=== PATIENT | female | born 1940 | race Caucasian/White ===

== ENCOUNTER → 2020-03-12 14:31 | Outpatient (BNVA) | payer MEDICARE, SELFPAY | PROVIDERS: PCP Internal Medicine; Visit Provider Family Medicine Adult Medicine | DX: R20.2 Paresthesia of skin (principal) | CPT/HCPCS: 99204 ==

== ENCOUNTER → 2020-03-19 09:34 | Outpatient (BNVA) | payer MEDICARE, SELFPAY | PROVIDERS: PCP Internal Medicine; Referring Provider Internal Medicine; Visit Provider Family Medicine Adult Medicine | DX: R20.2 Paresthesia of skin (principal) | CPT/HCPCS: 99212 ==

== ENCOUNTER → 2020-10-15 09:54 | Outpatient (BNVA) | payer MEDICARE, SELFPAY | PROVIDERS: PCP Internal Medicine; Visit Provider Family Medicine Adult Medicine | DX: R20.2 Paresthesia of skin (principal) | CPT/HCPCS: 99212 ==

== ENCOUNTER → 2020-10-29 13:26 | Outpatient (BNVA) | payer MEDICARE, SELFPAY | PROVIDERS: PCP Internal Medicine | DX: F11.20 Opioid dependence, uncomplicated (principal) | CPT/HCPCS: 80305; Q3014 ==

== ENCOUNTER → 2020-11-05 10:37 | Outpatient (BNVA) | payer MEDICARE, SELFPAY | PROVIDERS: Visit Provider Internal Medicine | DX: F11.20 Opioid dependence, uncomplicated (principal) | CPT/HCPCS: 80305; 99212 ==

== ENCOUNTER → 2020-11-12 11:06 | Outpatient (BNVA) | payer MEDICARE, SELFPAY | PROVIDERS: Visit Provider Internal Medicine | DX: F11.20 Opioid dependence, uncomplicated (principal) | CPT/HCPCS: 80305; 99212 ==

== ENCOUNTER → 2020-11-19 11:34 | Outpatient (BNVA) | payer MEDICARE, SELFPAY | PROVIDERS: Visit Provider Internal Medicine | DX: F11.20 Opioid dependence, uncomplicated (principal) | CPT/HCPCS: 99202 ==

== ENCOUNTER → 2020-11-20 09:25 | Outpatient (BNVA) | payer MEDICARE, SELFPAY | PROVIDERS: Visit Provider Internal Medicine | DX: Z51.81 Encounter for therapeutic drug level monitoring (principal) | CPT/HCPCS: 80305; 99211 ==

== ENCOUNTER → 2020-11-27 11:45 | Outpatient (BNVA) | payer MEDICARE, SELFPAY | PROVIDERS: Visit Provider Internal Medicine | DX: F11.20 Opioid dependence, uncomplicated (principal) | CPT/HCPCS: 80305; 99212 ==

== ENCOUNTER → 2020-12-04 14:12 | Outpatient (BNVA) | payer MEDICARE, SELFPAY | PROVIDERS: Visit Provider Internal Medicine | DX: F11.20 Opioid dependence, uncomplicated (principal) | CPT/HCPCS: 80305; 99212 ==

== ENCOUNTER → 2020-12-13 13:56 | Outpatient (BNVA) | payer MEDICARE, SELFPAY | PROVIDERS: Visit Provider Internal Medicine | DX: Z51.81 Encounter for therapeutic drug level monitoring (principal) | CPT/HCPCS: 80305; 99211 ==

== ENCOUNTER → 2021-01-01 13:09 | Outpatient (BNVA) | payer MEDICARE, SELFPAY | PROVIDERS: Visit Provider Internal Medicine | DX: F11.20 Opioid dependence, uncomplicated (principal) | CPT/HCPCS: 80305; 99212 ==

== ENCOUNTER → 2021-03-17 13:17 | Outpatient (BNVA) | payer MEDICARE, SELFPAY | PROVIDERS: Visit Provider Internal Medicine | DX: F11.20 Opioid dependence, uncomplicated (principal); F17.210 Nicotine dependence, cigarettes, uncomplicated; Z88.0 Allergy status to penicillin; Z51.81 Encounter for therapeutic drug level monitoring | CPT/HCPCS: 99212 ==

== ENCOUNTER 2021-03-29 16:41 | Emergency (ER) | payer MEDICARE, SELFPAY ==
[2021-03-29 16:54] VITALS: BP 168/90; PULSE 90; O2SAT 100
[2021-03-29 16:57] VITALS: BP 164/75; PULSE 86; RESP 18; TEMP 37.3; O2SAT 98; BMI 21.3
--- NOTE | 2021-03-29 17:05 | ED_ITS ---
HPI - General Adult General Chief complaint: General Medical Stated complaint: R ARM /LEG NERVE PAIN X'S 3 DAYS Time Seen by Provider: 03/29/21 16:55 Source: patient Mode of arrival: EMS Limitations: no limitations History of Present Illness HPI narrative: Patient with right-sided chronic pain used to follow with Pain Clinic was on Suboxone was at [facility] earlier today comes here for pain getting worse especially for last 3 days. Per patient she has not taken Suboxone for last 3 weeks as she does not have it anymore and the reason she is giving these because his primary care doctor does not want to give. Per records patient keeps changing her primary care doctor's last time patient was found taking oxycodone of her 's prescription. No recent trauma no headache no fever or chills Related Data Home Medications Medication Instructions Recorded Confirmed amitriptyline 50 mg tablet 50 mg PO BEDTIME 03/12/20 12/08/20 celecoxib 200 mg capsule mg PO 03/12/20 12/08/20 donepezil 10 mg tablet 10 mg PO DAILY 03/12/20 12/08/20 flu vac qv 2019(18yr up)rc(PF) IM 03/12/20 12/08/20 gabapentin 600 mg tablet mg PO Q12H tab 03/12/20 12/08/20 meloxicam 15 mg tablet 15 mg PO DAILY 03/12/20 12/08/20 ropinirole 0.25 mg tablet mg PO 03/12/20 12/08/20 Previous Rx's Medication Instructions Recorded buprenorphine 8 mg-naloxone 2 mg 3 film SUBLINGUAL DAILY 30 Days 01/01/21 sublingual film (Suboxone) #90 ea Allergies Allergy/AdvReac Type Severity Reaction Status Date / Time penicillin Allergy Unknown Unknown Uncoded 10/15/20 10:53 Review of Systems Review of Systems: Yes all other systems are reviewed and are negative FOR[facility]LY [facility] Past Medical History Medical History Family history of brain aneurysm Opioid dependence Pain management Right leg paresthesias Right leg paresthesias Social History Social History Household Members: Spouse Household Members Other:: lives only with Patient Tobacco Use Status: Current everyday Tobacco user Tobacco use type: Cigarette Cigarettes Per Day: 10 Years Smoked: 40 Advance Directives: No Advance Directives Information Provided: No Current occupation: retired nurse Physical Exam Vital Signs: Vital Signs: Last Vital Signs Temp 99.2 F 03/29/21 16:57 Pulse 86 03/29/21 16:57 Resp 18 03/29/21 16:57 BP 164/75 H 03/29/21 16:57 Pulse Ox 98 03/29/21 16:57 Body Mass Index 21.3 Appearance: Alert. Oriented X3. No acute distress. Eyes: PERRLA, No Nystagmus ENT: Pharynx normal. Oral Mucosa moist Neck: Normal inspection. Neck supple. CVS: Normal heart rate and rhythm. Pulses normal. Respiratory: No respiratory distress. Equal air entry bilateral, no wheezing/rales/rhonchi Abdomen: Soft and nontender. Bowel sounds are present, no mass palpable, no CVA tenderness Skin: Skin warm and dry. Normal skin color. Normal skin turgor. Extremities: No lower extremity edema. No calf tenderness Neuro: Oriented X 3. No motor deficit. No sensory deficit.No cerebellar signs , cranial nerves II-XII intact Medical Decision Making Lab Data Lab results reviewed: Yes I reviewed the patient's lab results. Labs: Lab Results 03/29/21 Range/Units 18:18 Urine Opiates Screen Not Detected (Not Detect) Urine Fentanyl Screen POSITIVE H (Not Detect) Ur Barbiturates Screen Not Detected (Not Detect) Ur Phencyclidine Scrn Not Detected (Not Detect) Ur Amphetamines Screen Not Detected (Not Detect) U Benzodiazepines Scrn Not Detected (Not Detect) Urine Cocaine Screen Not Detected (Not Detect) U Marijuana (THC) Screen Not Detected (Not Detect) Discharge Plan Discharge Clinical Impression: Chronic pain Qualifiers: Chronic pain type: chronic pain syndrome Qualified Code(s): G89.4 - Chronic pain syndrome Patient Disposition: Home, Self-Care Instructions: Chronic Pain (ED) Additional Instructions: Follow-up with your PCP/ pain clinicfor further management Prescriptions: No Action Flublok Quad [id number] (PF) 180 mcg (45 mcg x 4)/0.5 mL syringe IM RF: 0 amitriptyline 50 mg tablet 50 mg PO BEDTIME RF: 0 donepezil 10 mg tablet 10 mg PO DAILY RF: 0 celecoxib 200 mg capsule PO RF: 0 meloxicam 15 mg tablet 15 mg PO DAILY RF: 0 ropinirole 0.25 mg tablet PO RF: 0 gabapentin 600 mg tablet PO Q12H RF: 0 buprenorphine-naloxone [Suboxone] 8-2 mg film 3 film sublingual DAILY 30 Days Qty: 90 RF: 0
[2021-03-29 18:47] LABS: Amphetamine Screen Urine Not Detected (Not Detect); Barbiturates, Urine Not Detected (Not Detect); Benzodiazepines Screen Urine Not Detected (Not Detect); Cannabinoid Screen Urine Not Detected (Not Detect); Cocaine Screen Urine Not Detected (Not Detect); Fentanyl, urine POSITIVE (Not Detect); Opiate Screen Urine Not Detected (Not Detect); Phencyclidine Screen Urine Not Detected (Not Detect)
[2021-03-29] MEDS: oxyCODONE HCl Immed Release 5 MG TABLET 10 MG PO (19:02)
== END 2021-03-29 19:04 | disposition home or self-care (01) ==
PROVIDERS: Emergency Provider Internal Medicine; PCP Internal Medicine
DX: G89.4 Chronic pain syndrome (principal); M79.2 Neuralgia and neuritis, unspecified; F17.210 Nicotine dependence, cigarettes, uncomplicated; Z71.6 Tobacco abuse counseling; Z79.899 Other long term (current) drug therapy
CPT/HCPCS: 80307; 99283

== ENCOUNTER 2021-04-28 16:22 | Outpatient (REF) | payer MEDICARE, SELFPAY ==
--- NOTE | ~2021-04-28 | MR_ITS ---
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 COMPARISON: MR angiogram of the head 01/19/2017. TECHNIQUE: Multiplanar MR imaging of the brain was performed without contrast. A three-dimensional [id number] acquisition of the intracranial vessels was also performed without contrast. MIP reconstructions were generated in multiple orientations at the acquisition workstation. Multiple three-dimensional surface rendered images and maximum intensity projection images were generated on a dedicated 3-D lab workstation. Arterial stenoses are measured in accordance with NASCET criteria or similar method if applicable. FINDINGS: Brain: There is a small focus of gliosis and encephalomalacia involving the right anterior temporal lobe. There is also an old shunt tract traversing the right frontal lobe. Scattered nonspecific foci of T2 FLAIR signal hyperintense are visualized within the periventricular white matter. No acute territorial infarct. Intracranial vascular flow voids are grossly maintained. There is within the right sylvian fissure and suprasellar cistern consistent with aneurysm clips and/or endovascular coils. There is no intracranial mass effect or midline shift. No abnormal extra-axial collection. Lateral and third ventricles are proportionate to the subarachnoid spaces. No hydrocephalus. Midline structures including the cervicomedullary junction are normal. No acute bone marrow signal changes. There is no mastoid middle ear effusion. [id number]-[id number] paranasal sinus disease primarily affecting the ethmoid air cells. Globes and orbits are symmetric. 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 Intracranial internal carotid are otherwise patent. There are also small contour abnormality along the undersurfaces of both supraclinoid internal carotid artery that may represent small aneurysms or infundibula at the origins of both posterior communicating arteries. Due to the extent of coil mass artifact it is difficult to definitively exclude the presence of a recurrence at the aneurysm neck. Otherwise no evidence of aneurysm or high flow vascular malformation is visualized elsewhere within the intracranial compartment. 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 No evidence of acute territorial infarct. There are chronic changes related to the endovascular repair of intracranial aneurysms within the suprasellar cistern and right sylvian fissure. Due to the extent of susceptibility artifact related to the embolic hardware it is difficult to definitively exclude the presence of a recurrence at the aneurysm neck.
--- NOTE | ~2021-04-28 | MR_ITS ---
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 COMPARISON: MR angiogram of the head 01/19/2017. TECHNIQUE: Multiplanar MR imaging of the brain was performed without contrast. A three-dimensional plau-xl-zrtols acquisition of the intracranial vessels was also performed without contrast. MIP reconstructions were generated in multiple orientations at the acquisition workstation. Multiple three-dimensional surface rendered images and maximum intensity projection images were generated on a dedicated 3-D lab workstation. Arterial stenoses are measured in accordance with NASCET criteria or similar method if applicable. FINDINGS: Brain: There is a small focus of gliosis and encephalomalacia involving the right anterior temporal lobe. There is also an old shunt tract traversing the right frontal lobe. Scattered nonspecific foci of T2 FLAIR signal hyperintense are visualized within the periventricular white matter. No acute territorial infarct. Intracranial vascular flow voids are grossly maintained. There is within the right sylvian fissure and suprasellar cistern consistent with aneurysm clips and/or endovascular coils. There is no intracranial mass effect or midline shift. No abnormal extra-axial collection. Lateral and third ventricles are proportionate to the subarachnoid spaces. No hydrocephalus. Midline structures including the cervicomedullary junction are normal. No acute bone marrow signal changes. There is no mastoid middle ear effusion. Yzmo-cf-kaulztjd paranasal sinus disease primarily affecting the ethmoid air cells. Globes and orbits are symmetric. 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 Intracranial internal carotid are otherwise patent. There are also small contour abnormality along the undersurfaces of both supraclinoid internal carotid artery that may represent small aneurysms or infundibula at the origins of both posterior communicating arteries. Due to the extent of coil mass artifact it is difficult to definitively exclude the presence of a recurrence at the aneurysm neck. Otherwise no evidence of aneurysm or high flow vascular malformation is visualized elsewhere within the intracranial compartment. 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 No evidence of acute territorial infarct. There are chronic changes related to the endovascular repair of intracranial aneurysms within the suprasellar cistern and right sylvian fissure. Due to the extent of susceptibility artifact related to the embolic hardware it is difficult to definitively exclude the presence of a recurrence at the aneurysm neck.
== END 2021-04-28 16:23 | disposition home or self-care (01) ==
LOC: HO.MRI 16:22
PROVIDERS: Visit Provider Psychiatry & Neurology Neurology
DX: G89.0 Central pain syndrome (principal); I60.9 Nontraumatic subarachnoid hemorrhage, unspecified
CPT/HCPCS: 70544; 70551

== ENCOUNTER 2022-12-16 17:10 | Emergency (ER) | payer MEDICARE, SELFPAY ==
--- NOTE | 2022-12-16 17:11 | ED.EPISTAXIS ---
History of Present Illness General Chief Complaint: General Medical Stated Complaint: nose bleed, -blood thinners. Time Seen by Provider: 12/16/22 17:11 Source: patient, family, EMS, RN notes reviewed and old records reviewed Mode of arrival: EMS History of Present Illness HPI Narrative: 82-year-old female with a past medical history of opiate dependence, presenting to the ED via EMS complaining of epistaxis from right nare which occurred last night lasting about 1 hour and recurred today around 1630 spontaneously. Denies taking anticoagulation, nasal picking, head trauma, LOC, lightheadedness/dizziness, headache. tried direct pressure at home and packing with cotton without relief Location: Yes right nares Onset/current episode: Yes day(s) Related Data Home Medications Medication Instructions Recorded Confirmed amitriptyline 50 mg tablet 50 mg PO BEDTIME 03/12/20 12/08/20 celecoxib 200 mg capsule mg PO 03/12/20 12/08/20 donepezil 10 mg tablet 10 mg PO DAILY 03/12/20 12/08/20 flu vac qv 2019(18yr up)rc(PF) 180 IM 03/12/20 12/08/20 mcg(45 mcgx4)/0.5 mL IM syringe gabapentin 600 mg tablet mg PO Q12H 03/12/20 12/08/20 meloxicam 15 mg tablet 15 mg PO DAILY 03/12/20 12/08/20 ropinirole 0.25 mg tablet mg PO 03/12/20 12/08/20 Previous Rx's Medication Instructions Recorded buprenorphine 8 mg-naloxone 2 mg 3 film sublingual DAILY 30 days 01/01/21 sublingual film (Suboxone) #90 ea Allergies Allergy/AdvReac Type Severity Reaction Status Date / Time penicillin Allergy Unknown Unknown Uncoded 10/15/20 10:53 Review of Systems Review of Systems: Constitutional: No Fever, No Chills ENT/Mouth: +epistaxis, No Ear Pain, No Nasal Congestion, No Sinus Pain, No Hoarseness, No sore throat, No Rhinorrhea, No Swallowing Difficulty Cardiovascular: No Chest Pain, No SOB Respiratory: No Cough, No Sputum, No Wheezing Gastrointestinal: No Nausea, No Vomiting, No Abdominal pain Musculoskeletal: No joint pain, No Myalgias, No Joint Swelling Skin: No Skin Lesions, No rash Neuro: No Weakness, no lightheadedness/dizziness, no headache Yes all other systems are reviewed and are negative Constitutional: Constitutional: Reports as per [facility] Past Medical History Attestation statement: The following information was validated with the patient. Source: old records reviewed Medical History Family history of brain aneurysm Opioid dependence Pain management Right leg paresthesias Right leg paresthesias Social History Social History Household Members: Spouse Household Members Other:: lives only with Patient Tobacco Use Status: Current everyday Tobacco user Tobacco use type: Cigarette Cigarettes Per Day: 10 Years Smoked: 40 Advance Directives: No Advance Directives Information Provided: No Current occupation: retired nurse Physical Exam Vital Signs: Vital Signs: Last Vital Signs Temp 99.1 F 12/16/22 18:17 Pulse 93 12/16/22 18:17 Resp 18 12/16/22 18:17 BP 157/86 H 12/16/22 18:17 Pulse Ox 96 12/16/22 18:17 O2 Del Method Room Air 12/16/22 18:17 BMI result Body Mass Index 22.7 Const: General: cooperative, healthy appearing and no acute distress Orientation/consciousness: patient oriented x3 Limitations: no limitations HEENT: Head: Yes normal to inspection and Yes atraumatic Ears: hearing grossly normal bilaterally and external ears normal General nose exam: Normal external nose present and Epistaxis present on the left dried blood present; no active bleeding and clots present Face and sinus: Yes normal facial exam Throat: Yes posterior oropharynx normal (No appreciable active bleeding or dry blood), Yes uvula midline, No uvula laterally displaced and No uvular edema Eyes: General: appearance normal, both eyes and all related structures EOM: EOMs intact bilaterally Neck: Neck: Yes normal visual inspection and Yes no meningeal signs Resp: Effort & Inspection: normal respiratory effort and no respiratory distress Auscultation: clear to auscultation bilaterally Cardio: Rate: regular rate Heart sounds: S1 normal heart sound present and S2 normal heart sound present Skin: Rashes: no rashes Wounds: no wounds Neuro: General: patient oriented x3, tone normal and no meningeal signs Gait exam (Neuro): Normal gait present Extrem: General: Yes normal to inspection Course Course Course Narrative: -[id number]--H&H stable. Coags WNL. When to re-evaluate patient however eloped the ED Medical Decision Making Medical Decision Making [facility] Narrative: 82-year-old female with a past medical history of opiate dependence, presenting to the ED via EMS complaining of epistaxis from right nare which occurred last night lasting about 1 hour and recurred today around 1630 spontaneously. On exam vital signs stable, NAD, nontoxic appearing, dry blood noted to left knee are without evidence of active bleeding, no septal hematoma, no posterior oropharyngeal bleeding or dry blood. Talking in complete sentences. Concern for epistaxis which is currently resolved. Rule out anemia/coagulopathy Plan: CBC, INR, observe and re-evaluate Please refer to course for remaining clinical decision making, interpretation of labs/imaging results, and discussions with consultants and/or family members. Differential Diagnosis Differential Diagnoses: The differential diagnosis associated with the presentation includes As above Lab Data [facility] Lab Attestation statement: I reviewed the patient's lab results. 12/16/22 18:24 Labs: Lab Results 12/16/22 12/16/22 Range/Units 18:24 18:24 WBC 8.5 (4.8-10.8) X10*3/uL RBC 3.63 L (4.20-5.50) X10*6/uL Hgb 11.2 L (12.0-16.0) g/dl Hct 32.8 L (37.0-47.0) % MCV 90.4 (80.0-98.0) fL MCH 30.9 (27.0-33.0) pg MCHC 34.1 (31.0-35.0) g/dl RDW 13.0 (11.0-16.0) % Plt Count 238 (160-400) X10*3/uL MPV 10.6 (9.4-12.3) fL Immature Gran % (Auto) 0.2 (0.0-0.4) % Neut % (Auto) 80.7 H (45-73) % Lymph % (Auto) 12.4 L (20-40) % Millard % (Auto) 5.6 (2-11) % Eos % (Auto) 0.5 (0-4) % Baso % (Auto) 0.6 (0-2) % Lymph # (Auto) 1.1 L (1.2-4.9) X10*3/uL Millard # (Auto) 0.5 (0.1-1.2) X10*3/uL Eos # (Auto) 0.0 (0.0-0.4) X10*3/uL Baso # (Auto) 0.1 (0.0-0.2) X10*3/uL Abs Immat Gran (auto) 0.02 (0.00-0.03) X10*3/uL Absolute Neuts (auto) 6.9 (2.0-8.3) x10*3/uL Absolute Nucleated RBC 0.000 (0.0-0.012) X10*3/uL Nucleated RBC % (auto) 0.0 (0.0-0.2) /100WBC PT 11.8 (11.1-13.3) SEC INR 1.0 (0.9-1.1) External Record Review External record reviewed: Inpatient record, Office record, Outpatient record, Prior outpatient labs, Prior outpatient radiology, Primary care record and Outside ED record Tests considered The following testing was considered but not selected: As above Social Determinants Patient?s care significantly limited by Social Determinants of Health including: Alcoholism and drug addiction in family Discharge Plan Discharge Clinical Impression: Epistaxis Patient Disposition: Elopement Prescriptions: No Action Flublok Quad [id number] (PF) 180 mcg (45 mcg x 4)/0.5 mL syringe IM amitriptyline 50 mg tablet 50 mg PO BEDTIME donepezil 10 mg tablet 10 mg PO DAILY celecoxib 200 mg capsule PO meloxicam 15 mg tablet 15 mg PO DAILY ropinirole 0.25 mg tablet PO gabapentin 600 mg tablet PO Q12H buprenorphine-naloxone [Suboxone] 8-2 mg film 3 film sublingual DAILY 30 Days Qty: 90 0RF Interventions: ED Discharge Assessment Last Done: 12/16/22 19:11 Discharge Date/Time: 12/16/22 19:11
[2022-12-16 18:17] VITALS: BP 148/66; BP 157/86; PULSE 88; PULSE 93; RESP 18; TEMP 37.3; O2SAT 96; O2SAT 97; BMI 22.7
[2022-12-16 18:31] LABS: MANUAL DIFF FLAG NO
[2022-12-16 18:34] LABS: Basophils Absolute Auto 0.1 X10*3/uL (0.0-0.2); Basophils Percent Auto 0.6 % (0-2); Eosinophils Percent Auto 0.5 % (0-4); Hematocrit 32.8 % (37.0-47.0); Hemoglobin 11.2 g/dl (12.0-16.0); Imm Gran Abs Auto 0.02 X10*3/uL (0.00-0.03); Imm Gran Pct Auto 0.2 % (0.0-0.4); Lymphocytes Absolute Auto 1.1 X10*3/uL (1.2-4.9); Lymphocytes Percent Auto 12.4 % (20-40); Mean Corpuscular HGB Conc 34.1 g/dl (31.0-35.0); Mean Corpuscular Hemoglobin 30.9 pg (27.0-33.0); Mean Corpuscular Volume 90.4 fL (80.0-98.0); Mean Platelet Volume 10.6 fL (9.4-12.3); Monocytes Absolute Auto 0.5 X10*3/uL (0.1-1.2); Monocytes Percent Auto 5.6 % (2-11); Neutrophils Absolute Auto 6.9 x10*3/uL (2.0-8.3); Neutrophils Percent Auto 80.7 % (45-73); Platelet Count 238 X10*3/uL (160-400); Red Blood Count 3.63 X10*6/uL (4.20-5.50); White Blood Count 8.5 X10*3/uL (4.8-10.8)
[2022-12-16 18:43] LABS: Prothrombin Time 11.8 SEC (11.1-13.3)
== END 2022-12-16 19:11 | disposition left against medical advice (07) ==
PROVIDERS: Physician Assistant; Emergency Provider Internal Medicine
DX: R04.0 Epistaxis (principal); F17.210 Nicotine dependence, cigarettes, uncomplicated; Z79.899 Other long term (current) drug therapy
CPT/HCPCS: 36415; 85025; 85610; 99282; 99283

== ENCOUNTER 2023-12-18 17:43 | Emergency (ER) | payer MEDICARE, SELFPAY ==
--- NOTE | ~2023-12-18 | XR_ITS ---
EXAMINATION: XR LUMBOSACRAL SPINE CLINICAL INFORMATION: Low back pain COMPARISON: None available. TECHNIQUE: Three views of the lumbosacral spine. FINDINGS: 5 lumbar type vertebral bodies are identified. A moderate anterior wedge deformity with 50% loss of craniocaudal height is present in association with the T12 vertebral body. No lumbar vertebral body compression deformities. Diffuse osteopenia. Moderate intervertebral disc space narrowing L3-L4, L4-L5 and L5-S1. Moderate-marked bilateral facet hypertrophic changes L3-L4, L4-L5 and L5-S1. Marked aortoiliac calcific atherosclerosis. The visualized sacrum appears intact. Curvilinear density which may represent dystrophic calcification or suture material is projected in the left subphrenic space. XR/XR lumbar spine 2-3V IMPRESSION: *Age indeterminate anterior wedge compression fracture of the T12 vertebral body with 50% loss of craniocaudal height. *Multilevel chronic spondylosis of lumbar spine. *Diffuse osteopenia.
[2023-12-18 18:25] VITALS: BP 144/76; PULSE 97; RESP 18; TEMP 36.9; O2SAT 97; BMI 18.1
--- NOTE | 2023-12-18 18:25 | ED.GENADULT ---
HPI - General Adult General Chief complaint: Back Pain/Injury Stated complaint: pain back and leg Time Seen by Provider: 12/18/23 19:33 Source: patient, RN notes reviewed and old records reviewed Mode of arrival: ambulatory Limitations: no limitations History of Present Illness ED Provider: Gary HPI narrative: 83-year-old male with past medical history significant for chronic back pain presents for evaluation of back pain. Patient states that she has not take an oxycodone since Wednesday because she ?ran out. ? Patient last for the prescription for oxycodone immediate release 20 mg tablets on 11/26/2023. This was for 120 tablets which is a 30 day supply for the patient. She admits that she takes more than 4 times a day because ?I have been trying to get my doctor to increase it to 30 mg tablets but they refused. ? She reports the pain radiates to her legs bilaterally. Denies any numbness, tingling pain Denies any weakness pain Denies any bladder or bowel incontinence. Patient states her last MRI was earlier this year which did not show any significant abnormalities. She reports that she is following with the neurosurgeon at [facility] and plans to have a spinal stimulator placed She is unsure when that procedure will be taking place Patient states that she had a trial in May/June of this year that was successful but this is only a temporary device Related Data Home Medications ?Medication ?Instructions ?Recorded ?Confirmed amitriptyline 50 mg tablet 50 mg PO BEDTIME 03/12/20 12/08/20 celecoxib 200 mg capsule mg PO 03/12/20 12/08/20 donepezil 10 mg tablet 10 mg PO DAILY 03/12/20 12/08/20 flu vac qv 2019(18yr up)rc(PF) 180 IM 03/12/20 12/08/20 mcg(45 mcgx4)/0.5 mL IM syringe gabapentin 600 mg tablet mg PO Q12H 03/12/20 12/08/20 meloxicam 15 mg tablet 15 mg PO DAILY 03/12/20 12/08/20 ropinirole 0.25 mg tablet mg PO 03/12/20 12/08/20 Previous Rx's ?Medication ?Instructions ?Recorded buprenorphine 8 mg-naloxone 2 mg 3 film sublingual DAILY 30 days 01/01/21 sublingual film (Suboxone) #90 ea cyclobenzaprine 10 mg tablet 10 mg PO TID PRN muscle spasm #20 12/18/23 tabs dexamethasone 4 mg tablet 4 mg PO BID #6 tabs 12/18/23 oxycodone 20 mg tablet 20 mg PO Q6H PRN severe pain 12/18/23 (scale score 7-10) #8 tabs Allergies Allergy/AdvReac Type Severity Reaction Status Date / Time penicillin Allergy Unknown Unknown Uncoded 12/18/23 18:26 Review of Systems Constitutional: Constitutional: Denies body ache(s), Denies chills, Denies fever(s), Denies headache(s) and Denies weakness Eyes: Eyes: Denies blurry vision ENT: Denies headache(s) Cardiovascular: Cardiovascular: Denies chest pain and Denies dyspnea Respiratory: Respiratory: Denies cough and Denies dyspnea Gastrointestinal: Gastrointestinal: Denies abdominal pain Musculoskeletal: Musculoskeletal: Reports back pain and Denies tingling Integumentary/Breasts: Skin/Breast: Denies rash Neurologic: Denies headache(s), Denies Sensory deficit (Neuro), Denies tingling, Denies paresthesias and Denies weakness [facility] Past Medical History Medical History Family history of brain aneurysm Opioid dependence Pain management Right leg paresthesias Right leg paresthesias Social History Social History Household Members: Spouse Household Members Other:: lives only with Alcohol intake: current Alcohol intake frequency: a few times a month Patient Tobacco Use Status: Current everyday Tobacco user Tobacco use type: Cigarette Cigarettes Per Day: 10 Years Smoked: 40 Smoked in Last 30 Days: Yes Use of substances other than those prescribed or required for medical reasons: No Any prior treatment program specific to substance use: No Advance Directives: No Advance Directives Information Provided: No Current occupation: retired nurse Physical Exam ED Vital Signs: Vital Signs - 24 hr 12/18/23 18:25 12/18/23 20:43 Temperature 98.4 F 98.4 F Pulse Rate 97 97 Respiratory Rate 18 18 Blood Pressure 144/76 H 144/76 H Pulse Oximetry 97 97 Oxygen Delivery Method Room Air Room Air BMI result Body Mass Index 18.1 Const General: healthy appearing, comfortable, no acute distress, alert and awake Orientation/consciousness: patient oriented x3 HENMT Head: Yes normocephalic and Yes atraumatic Throat: Yes posterior oropharynx normal Eyes Eyelids: Yes eyelids normal Conjunctivae: conjunctivae normal Sclerae: sclerae normal Corneas: corneas normal Pupils: Equal, round and reactive pupils present EOM: EOMs intact bilaterally Neck Neck: Yes full ROM Resp Effort & Inspection: normal respiratory effort, able to speak in complete sentences, no audible wheezes and not labored Auscultation: clear to auscultation bilaterally Cardio Rate: regular rate Rhythm: regular rhythm GI Inspection: No distended Palpation (GI): Soft to palpation, not firm, nontender, no guarding and not rigid Back/Spine/Pelvis Other: No tenderness with palpation of the lumbar spine. No step-offs or deformities. Skin General skin exam: no rashes or lesions noted and elasticity normal Neuro General: patient oriented x3 Cranial nerves: Yes Equal, round and reactive pupils present and Yes Bilaterally intact EOM present Cognition (Neuro): normal cognition Motor exam (neuro): 5/5 motor strength present throughout Sensory Exam: No Sensory deficit (Neuro) Deep tendon reflexes (DTR's): Right patellar reflex intensity grade: 2+ and Left patellar reflex intensity grade: 2+ Extrem Other: Moving all extremities well without any obvious deformities Course Course Course Narrative: This is a Rapid Medical Exam performed in triage by Maria R Carpenter PA-C. Full HPI, ROS and PE to be performed by primary ED provider. 83 year-old F w/ PMHx opiate dependence presenting to the ED c/o acute on chronic low back pain. States she has been on Oxy 20mg but she ran out. [facility] prescription of 120 pills (30 day supply) of 20 mg Oxycodone on 11/25. States she is supposed to have spine stimulator placed however waiting for procedure > per pain management note patient was taking her 's oxycodone thus they would not treat her PE: Ambulating with slow steady gait Plan: Pain control Reevaluation(s) Reevaluation #1: Patient has no T12 tenderness. Her tenderness is lower lumbar to S1. The age indeterminate compression fracture is likely not acute Medical Decision Making Medical Decision Making MDM Narrative: 83-year-old female presents for evaluation of acute on chronic back pain. Reviewed her mass pad and she is on a significant amount of opiates. She admits to using more than prescribed which is why she ran out 5 days ago. Her prescription will not renew for at least a week. I discussed the risks of chronic opiate use and abuse. The patient did have an x-ray ordered in triage, I have no suspicion for cauda equina syndrome, as patient has a reassuring exam. She reports having had an MRI earlier this year. I agreed to give the patient 2 days' worth of oxycodone to help her through the weekend until she can follow up with her doctor. I will additionally add Flexeril and dexamethasone and she will follow-up her primary doctor when able Differential Diagnosis Differential Diagnoses: The differential diagnosis associated with the presentation includes Acute lower back pain Acute on chronic back pain Muscle strain Radiculopathy Opiate dependence Independent Interpretation I performed an independent interpretation of an: Plain X-Ray Interpretation: Straightening of the lumbar spine, no obvious acute compression fractures. Moderate constipation Radiology Impression Discussion of test interpretation with radiology: I have reviewed the radiologist's reading. Radiologist Impression: XR/XR lumbar spine 2-3V IMPRESSION: *Age indeterminate anterior wedge compression fracture of the T12 vertebral body with 50% loss of craniocaudal height. *Multilevel chronic spondylosis of lumbar spine. *Diffuse osteopenia. Discharge Plan Discharge Clinical Impression: Acute on chronic back pain, Opioid dependence Patient Disposition: Home, Self-Care Instructions: Chronic Pain (ED), Opioid Use Disorder (ED) Additional Instructions: I prescribed 2 days' worth of oxycodone for you to help you through the weekend. Follow-up with your primary doctor regarding future prescriptions. Take dexamethasone twice daily for the next 3 days and Flexeril as prescribed The oxycodone and Flexeril may make you sleepy, did not drink alcohol or drive after taking it Prescriptions: New oxycodone 20 mg tablet 20 mg PO Q6H PRN (Reason: severe pain (scale score 7-10)) Qty: 8 0RF Rx Instructions: Partial Fill upon patient request. dexamethasone 4 mg tablet 4 mg PO BID Qty: 6 0RF cyclobenzaprine 10 mg tablet 10 mg PO TID PRN (Reason: muscle spasm) Qty: 20 0RF No Action Flublok Quad [id number] (PF) 180 mcg (45 mcg x 4)/0.5 mL syringe IM amitriptyline 50 mg tablet 50 mg PO BEDTIME donepezil 10 mg tablet 10 mg PO DAILY celecoxib 200 mg capsule PO meloxicam 15 mg tablet 15 mg PO DAILY ropinirole 0.25 mg tablet PO gabapentin 600 mg tablet PO Q12H buprenorphine-naloxone [Suboxone] 8-2 mg film 3 film sublingual DAILY 30 Days Qty: 90 0RF Interventions: ED Discharge Assessment Last Done: 12/18/23 20:43 Discharge Date/Time: 12/18/23 20:44 Print Language: Tanzanian
--- OUTSIDE RECORDS SUMMARY | 2023-12-18 18:47 | XMS_ITS | Continuity of Care Document ---
Author Organization [facility] Address [address] [facility] [place] [address]- Care Team Providers Care Electrotyper Name Role Phone Shelbie BLACKBURN, Andrew Sebastian Primary Care Physician [phone] Encounter 08/28/21 - 09/04/21 [facility] [address], [address] [place] [address]- Attending Physician: Dennis Glass MD Admitting Physician: Dennis Glass MD Referring Physician: Dennis Glass MD Allergies, Adverse Reactions, Alerts Substance Reaction Severity Status penicillins Active Immunizations Given and Recorded Vaccine Date Status Refusal Reason SARS-CoV-2 (COVID-19) mRNA BNT-162b2 vac 07/30/20 Given SARS-CoV-2 (COVID-19) mRNA BNT-162b2 vac 07/09/20 Given influenza virus vaccine, inactivated 01/07/15 Walter rded pneumococcal 23-valent vaccine 11/18/10 Given tetanus-diphtheria toxoids (Td) 09/02/09 Given Medications amitriptyline 50 mg oral tablet 1 tablet = 50 mg, By Mouth, Daily at bedtime, # 30 tablet, 0 Refills, Maintenance, 12/24/14 15:14:39, Tablet Start Date: 12/24/14 Status: Ordered Calcium 600 +D oral tablet 1 tablet, By Mouth, Daily, 0 Refills, Maintenance Start Date: 01/06/11 Status: Ordered gabapentin 600 mg oral tablet 1 tablet = 600 mg, By Mouth, 2 times a day, 0 Refills, Maintenance, 06/25/17 11:26:07 Start Date: 06/25/17 Status: Ordered meloxicam 15 mg oral tablet 1 tablet = 15 mg, By Mouth, Daily, # 30 tablet, 0 Refills, Maintenance, 03/01/18 9:54:35 EDT, Tablet Start Date: 03/01/18 Status: Ordered Multivitamin By Mouth, Daily, 0 Refills, Maintenance, 01/08/16 10:46:58 Start Date: 01/08/16 Status: Ordered Prilosec 20 mg oral enteric coated capsule 1 capsule = 20 mg, By Mouth, 2 times a day, PRN acid reflux, 0 Refills, Maintenance Start Date: 01/06/11 Status: Ordered Vitamin C 1000 mg oral tablet 1 tablet = 1,000 mg, By Mouth, Daily, 0 Refills, Maintenance Start Date: 01/06/11 Status: Ordered vitamin E 400 iu oral capsule 1 capsule = 400 International_Units, By Mouth, Daily, 0 Refills, Maintenance Start Date: 01/06/11 Status: Ordered ZzzQuil By Mouth, 0 Refills, Maintenance, 01/08/16 10:47:18 Start Date: 01/08/16 Status: Ordered Problem List Condition Effective Dates Status Health Status Inform ant Aneurysm(Confirmed) Active Degenerative lumbar disc(Confirmed) Active Depressive Disorder, Not Els ewhere Classified(Confirmed) Active Depressive Disorder, Not Els ewhere Classified(Confirmed) Active Headache(Confirmed) Active Use of opiates for therapeut ic purposes(Confirmed) Active S/P lumbar spine operation(Confirmed) Active Low back pain(Confirmed) Active Lumbar spondylosis(Confirmed) Active Radiculopathy of leg(Confirmed) Active Nicotine use disorder(Confirmed) Active Lower extremity pain(Confirmed) Active SAH - Subarachnoid hemorrhage(Confirmed) Active Social History Social History Type Response Smoking Status Current every day jess gonzalez; Tobacco user in household: Yes; Type: Cigarettes; Tobacco use times per day: 1/2 PPD; Started at age: 17; entered on: 06/25/17 Sex
--- OUTSIDE RECORDS SUMMARY | 2023-12-18 18:47 | XMS_ITS | Continuity of Care Document ---
Author Organization [facility] Address [address] [place] [address]- Care Team Providers Care Milking System Installer Name Role Phone Andrew Morfin MD Primary Care Physician [place] [facility] [place]14/19 - 01/21/20 [place] [address]- [facility] Discharge Disposition: A-D/C Home Attending Physician: Narciso Peña Admitting Physician: Narcios Peña Referring Physician: Narciso Peña Allergies, Adverse Reactions, Alerts Substance Reaction Severity Status penicillins Active Immunizations Given and Recorded Vaccine Date Status Refusal Reason influenza virus vaccine, inactivated 01/07/15 Walter rded [...]
--- OUTSIDE RECORDS SUMMARY | 2023-12-18 18:47 | XMS_ITS | Continuity of Care Document ---
Author Organization [facility] Address [address] [place] [address]- Care Team Providers Care Boat Canvas Maker And Installer Name Role Phone Andrew Morfin MD Primary Care Physician [place] [facility] [place] 06/12/21 - 07/12/21 [facility] [address] [place] [address]- Allergies, Adverse Reactions, Alerts Substance Reaction Severity [...]
--- OUTSIDE RECORDS SUMMARY | 2023-12-18 18:47 | XMS_ITS | Continuity of Care Document ---
Author Organization [facility] Address [address] [place] [address]- Care Team Providers Care Disability Hearing Officer Name Role Phone Andrew Morfin MD Primary Care Physician En[place] [facility] Date(s): 12/01/19 - 12/31/[address] [address]- [facility] Attending Physician: Vy Case Admitting Physician: Vy Case Referring Physician: AdmtrVy Allergies, Adverse Reactions, Alerts Substance Reaction Severity [...]
--- OUTSIDE RECORDS SUMMARY | 2023-12-18 18:47 | XMS_ITS | Continuity of Care Document ---
Author Organization [facility] Address [address] [place] [address]- Care Team Providers Care Social Contact Worker Name Role Phone Andrew Morfin MD Primary Care Physician Encounter [facility] [id number] Date(s): 05/22/21 - 06/21/21 [facility] [address] [place] [address]- Allergies, Adverse Reactions, Alerts Substance Reaction Severity [...]
--- OUTSIDE RECORDS SUMMARY | 2023-12-18 18:47 | XMS_ITS | Continuity of Care Document ---
Author Organization [facility] Address [address] [place] [address] [address], [address] [place] [address]- Care Team Providers Care Stacker Name Role Phone Quan BLACKBURN, Dennis Junior Primary Care Physician [phone] Encounter [facility] Date(s): 03/18/22 - 04/17/22 [facility] [address] [place] [address] Drive, [address] [place] [address]- Allergies, Adverse Reactions, Alerts Substance Reaction Severity [...] Refills, Maintenance Start Date: 01/06/11 Status: Ordered CeleBREX 50 mg oral capsule 1 capsule = 50 mg, By Mouth, 2 times a day, 0 Refills, Maintenance, 03/30/22 14:12:00 EST, Partial fill upon patient request if the prescription is for a schedule II opioid drug. Start Date: 03/30/22 Status: Ordered gabapentin 300 mg oral capsule 300 mg, 1, capsule, By Mouth, 3 times a day, # 90 capsule, Refills 5, Maintenance, 03/30/22 14:15:00 EST, Partial fill upon patient request if the prescription is for a schedule II opioid drug. Start Date: 03/30/22 Status: Ordered gabapentin 600 mg oral tablet 1 tablet = 600 mg, By Mouth, 2 times a day, 0 Refills, Maintenance, 06/25/17 11:26:07 Start Date: 06/25/17 Status: Ordered lidocaine 5% topical film 1 patch, Topically, Daily, PRN Pain , Mild, remove after 12 hours, # 14, 0 Refills, Maintenance, 11/16/21 11:13:00 EDT, Film, Partial fill upon patient request if the prescription is for a schedule II opioid drug. Start Date: 11/16/21 Status: Ordered meloxicam 15 mg oral tablet 1 tablet = 15 mg, By Mouth, Daily, # 30 tablet, 0 Refills, Maintenance, 03/01/18 9:54:35 EDT, Tablet Start Date: 03/01/18 Status: Ordered Multivitamin By Mouth, Daily, 0 Refills, Maintenance, 01/08/16 10:46:58 Start Date: 01/08/16 Status: Ordered oxyCODONE 15 mg oral tablet 1 tablet = 15 mg, By Mouth, Every 8 hours, 0 Refills, Maintenance, 03/30/22 14:13:00 EST, Partial fill upon patient request if the prescription is for a schedule II opioid drug. Start Date: 03/30/22 Status: Ordered Prilosec 20 mg oral enteric [...] Date: 01/08/16 Status: Ordered Problem List Condition Confirmation Course Effective Dates Status H ealth Status Informant Aneurysm Confirmed Active Degenerative lumbar disc Confirmed Active Depressive Disorder, Not Elsewhere Classified Confirmed Active Depressive Disorder, Not Elsewhere Classified Confirmed Active Headache Confirmed Active Use of opiates for therapeutic purposes Confirmed Active S/P lumbar spine operation Confirmed Active Low back pain Confirmed Active Lumbar spondylosis Confirmed Active Radiculopathy of leg Confirmed Active Nicotine use disorder Confirmed Active Lower extremity pain Confirmed Active SAH - Subarachnoid hemorrhage Confirmed Active Social History Social History Type Response Smoking Status Current every day sm oker; Tobacco user in household: Yes; Type: Cigarettes; Tobacco use times per day: 05/25 PPD; Started at age: 17; entered on: 06/25/17 Sex Patient Care team information Care Team Personnel Name: Dennis Glass MD Position: [facility] Outreach Member Role: PCP Address: Address: [address] [place] [address] - [address] [employer], [place] [address]- Care Team Related Persons Name: RONNI SHELBY Address: [address] [facility] [place] [address] Name: AYAN LOVETT Address: home [address] [place] [address]
--- OUTSIDE RECORDS SUMMARY | 2023-12-18 18:47 | XMS_ITS | Continuity of Care Document ---
Author Organization [facility] Address [address] [place] [address]- Care Team Providers Care Corporate Traffic Manager Name Role Phone Andrew Morfin MD Primary [id number] - [facility]/09[facility] [address]- [facility] Attending Physician: Andrew Morfin MD Allergies, Adverse Reactions, Alerts Substance Reaction [...]
--- OUTSIDE RECORDS SUMMARY | 2023-12-18 18:47 | XMS_ITS | Continuity of Care Document ---
Author Organization [facility] Address [address] [place] [address]- Care Team Providers Care Crinkling Machine Operator Name Role Phone Andrew Morfin MD Primary Care Physician [place] [facility] [place] 10[place]10[place]21 - 11/09/21 [facility] [address] [place] [address]- Attending Physician: Vy Case Admitting Physician: AdmVy jeter Referring Physician: AdmtrVy Allergies, Adverse Reactions, Alerts [...] Daily, # 30 tablet, 0 Refills, Maintenance, 10/09/18 9:54:35 EDT, Tablet Start Date: 03/01/18 Status: [...]
--- OUTSIDE RECORDS SUMMARY | 2023-12-18 18:48 | XMS_ITS | Continuity of Care Document ---
Author Organization [facility] ter Address [address] [place] [address]- Care Team Providers Care Desk Operator Name Role Phone Andrew Morfin MD Primary Care Physician [phone] [place] [facility] [place] 10[place]19/[place] - 11/23/[address] [address]- Attending Physician: Dennis Glass MD Admitting Physician: [...] Response Smoking Status Current every day sm lisa; Tobacco user in household: Yes; Type: Cigarettes; Tobacco use times per day: 1/2 PPD; Started at age: 17; entered on: 06/25/17 Sex
--- OUTSIDE RECORDS SUMMARY | 2023-12-18 18:48 | XMS_ITS | Continuity of Care Document ---
Author Organization [facility] Address [address] [place], [place] [address], [address] [place] [address]- Care Team Providers Care Director Sports Name Role Phone Quan BLACKBURN, Dennis Junior Primary [id number] [address] [place] [address] Drive, [address] [place] [address]- Attending Physician: Candice Jeffries DO Referring Physician: Azeb Ramirez OT Allergies, Adverse Reactions, Alerts Substance Reaction Severity [...] Active SAH - Subarachnoid hemorrhage Confirmed Active Vital Signs Most recent to oldest [Reference Range]: 1 Height 168 cm (03/30/22 2:04 PM) Weight 57 kg (03/30/22 2:04 PM) Body Mass Index [18.5-24.99 kg/m2] 20.2 kg/m2 (03/30/22 2:04 PM) Social History Social History Type Response Smoking Status Current every day jess gonzalez; Tobacco user in household: Yes; Type: Cigarettes; Tobacco use times per day: 1/2 PPD; Started at age: 17; entered on: 06/25/17 Sex Patient Care team information Care Team Personnel Name: Quan BLACKBURN, Dennis Junior Position: [facility] Outreach Member Role: PCP Address: Address: [address] [place] [address] - [address] [employer] [address] Care Team Related Persons Name: RONNI SHELBY Address: home [address] [place] [address] Name: AYAN LOVETT Address: home [address] [place] [address]
--- OUTSIDE RECORDS SUMMARY | 2023-12-18 18:48 | XMS_ITS | Continuity of Care Document ---
Author Organization [facility] Address [address] [facility] [address], [address] [place] [address]- Care Team Providers Care Manager Technical Sales Name Role Phone Shelbie BLACKBURN, Andrew Sebastian Primary Care Physician [place] [facility] [place]05[place]20 - 10/05/20 [facility] [address], [address], [address] [place] [address]- Attending Physician: Vy Case Admitting Physician: Vy [...]
--- OUTSIDE RECORDS SUMMARY | 2023-12-18 18:48 | XMS_ITS | Continuity of Care Document ---
Author Organization [facility] Address [address] [facility], [address] Floor, [address] [place] [address]- Care Team Providers Care Snow Ranger Name Role Phone Shelbie BLACKBURN, Andrew Sebastian Primary Care Physician Encounter [facility] Date(s): 07/15/20 - 08/14/20 [facility] [address], [address], [address] [place] [address]- Allergies, Adverse Reactions, Alerts Substance Reaction Severity [...]
--- OUTSIDE RECORDS SUMMARY | 2023-12-18 18:48 | XMS_ITS | Continuity of Care Document ---
Author Organization [facility] Address [address] [place] [address]- Care Team Providers Care Network Architect Manager Name Role Phone Dennis Glass MD Primary Care Physician [place] [facility] [id number] Date(s): 03/19/22 - 04/18/22 [facility] [address] [place] [address]- Attending Physician: Vy Case Admitting Physician: AdmtrVy Referring Physician: Admtr, Ar8 Allergies, Adverse Reactions, Alerts Substance Reaction Severity [...] Type: Cigarettes; Tobacco use times per day: / PPD; Started at age: 17; entered on: 06/25/17 Sex Patient Care team information Care Team Personnel Name: Quan BLACKBURN, Dennis Junior Position: [facility] Outreach Member Role: PCP Address: Address: [address] [place] [address] - [address] [place], [place] [address]- Care Team Related Persons Name: RONNI SHELBY Address: home [address] [place] [address] Name: AYAN LOVETT Address: home [address] [place] [address]
--- OUTSIDE RECORDS SUMMARY | 2023-12-18 18:48 | XMS_ITS | Continuity of Care Document ---
Author Organization [facility] Address [address] [facility], [address] Floor, [address] [place] [address]- Care Team Providers Care Cigarette Examiner Name Role Phone Andrew Morfin MD Primary Care Physician Encounter [facility] [place] Date(s): 07/17/20 - 10/05/20 [facility] [address], [address], [address] [place] [address]- Attending Physician: Mahnaz MCCOLLUM, Cecy Pastrana Admitting Physician: Mahnaz MCCOLLUM, Cecy Pastrana Referring Physician: Andrew Morfin MD Allergies, Adverse Reactions, [...]
--- OUTSIDE RECORDS SUMMARY | 2023-12-18 18:48 | XMS_ITS | Continuity of Care Document ---
Author Organization [facility] ter Address [address] [place] [address]- Care Team Providers Care Pump And Blower Operator Name Role Phone Andrew Morfin MD Primary Care Physician [place] [facility] [place]/29/21 - 03/29/[address] [address]- Discharge Disposition: A-D/C Walkout Attending Physician: Not on Staff, Attending MD Admitting Physician: Not on Staff, Admitting MD Referring Physician: Not on Staff, Referring MD Allergies, Adverse Reactions, Alerts Substance Reaction [...] pain(Confirmed) Active SAH - Subarachnoid hemorrhage(Confirmed) Active Vital Signs Most recent to oldest [Reference Range]: 1 2 Height 168 cm (03/29/21 7:18 AM) Weight 54.5 kg (03/29/21 7:18 AM) Oxygen Saturation [94-100 %] 98 % (03/29/21 7:20 AM) Pulse Rate [55-90 bpm] 77 bpm (03/29/21 7:20 AM) Body Mass Index [18.5-24.99] 19.31 (03/29/21 7:18 AM) Blood Pressure [90-138/55-84 mm Hg] 106/ 65mm Hg (03/29/21 7:20 AM) Respiratory Rate [16-30 br/min] 16 br/mi n (03/29/21 7:20 AM) Temperature [96.8-100.4 DegF] 98.3 DegF (03/29/21 7:20 AM) Mode of Delivery (Oxygen) Room air (03/29/21 7:20 AM) Room air (03/29/21 7:18 AM) Blood pressure sites Arm, right (03/29/21 7:20 AM) Arm, left (03/29/21 7:18 AM) Temperature Route Oral (03/29/21 7:20 AM) Oral (03/29/21 7:18 AM) Dry Weight 54.5 kg (03/29/21 7:18 AM) Weight Obtained Via Patient/family state d (03/29/21 7:18 AM) Dry Weight Obtained Via Patient/family s tated (03/29/21 7:18 AM) Social History Social History Type Response Smoking Status Current every day jess gonzalez; Tobacco user in household: Yes; Type: Cigarettes; Tobacco use times per day: 1/2 PPD; Started at age: 17; entered on: 06/25/17 Sex
--- OUTSIDE RECORDS SUMMARY | 2023-12-18 18:48 | XMS_ITS | Continuity of Care Document ---
Author Organization [facility] Address [address] [facility] [place] [address]- Care Team Providers Care Staple Shear Operator Name Role Phone Andrwe Morfin MD Primary Care Physician Encounter 06/02/19 - 06/09/19 [facility] [address], [address] [place] [address]- [phone] Attending Physician: Andrew Morfin MD Admitting Physician: Andrew Morfin MD Referring Physician: Andrew Morfin MD Allergies, Adverse [...]
--- OUTSIDE RECORDS SUMMARY | 2023-12-18 18:48 | XMS_ITS | Patient Health Record ---
Author Organization [facility] Address [address] [place] [address] Care Team Providers Care Forensic Psychologist Name Role Phone MD dominique Morfin Primary Care Provider Unavailab le Allergies Allergen (clinical drug ingredient) Drug/Non Drug Allergy documented on EMR Reaction Allergy Type Onset Date Status levetiracetam Keppra Unknown Drug Allergy Act yoan lamotrigine Lamictal Unknown Drug Allergy Activ e doxycycline Doxycycline Unknown Drug Allergy Act yoan Penicillin Unknown Drug Allergy Active Reason For Referral No Information Medications Medication SIG (Take, Route, Frequency, Duration) Notes Start Date End Date Status Vitamin C 1000 MG 1 tablet Orally Once a day for 30 day(s) Active Buprenorphine HCl 8 MG 1 tablet under th e tongue and allow to dissolve Sublingual Once a day Active predniSONE 50 MG 1 tablet Orally Once a day for 30 day(s) Active Lyrica 75 MG 1 capsule Orally Onc e a day Active Donepezil HCl Not-Ta [place] Vitamin E 100 UNIT 1 capsule Orally Onc e a day for 30 day(s) Active Multivitamin - 1 tablet Orally Once a day for 30 day(s) Active Aricept 10 MG 1 tablet at bedtime Orally Once a day for 30 day(s) Active Pregabalin 25 MG 1 capsule Orally BID Not-Taking Amitriptyline HCl 50 MG 1 tablet at bedt jake Orally Once a day Not-Taking Social History Tobacco Use: Social History Observation Description Date Details (start date - stop date) Current Smoker 09/17/1979 - NA Tobacco Use/Smoking Question Answer Notes Are you a current smoker How often do you smoke cigarettes? every day How many cigarettes a day do you smoke? 11-20 How soon after you wake up do you smoke your fir st cigarette? 6-30 minutes Are you interested in quitting? Not ready to hilary t When did you start smoking? 09/17/1979 Problems Problem Type SNOMED Code ICD Code Onset Dates Problem Status W/U Status Risk Notes Problem Lumbosacral spondylosis without myelopathy (01524998) Other spondylosis with radiculopathy, lumbar region (M47.26) Active confirmed Plan Of Treatment No Information Insurance Providers Payer Name Payer Address Payer Phone Subscriber Number Group Number Insured Name Patient Relationship to Insured Coverage Start Date Coverage End Date [facility] Adv Plan [facility] [address] [place] [address] [id number] HMO Out of Network MARY KATE CASTANEDA Self - patient is the insured Medical (General) History Medical History History ICD Code bursitis left hip ruptured right cerebral aneurysm cataracts injections htn neuropathy Surgical History Surgery Date(Month/Year) cataract removal injections surgery of complex intracranial aneurysm
--- OUTSIDE RECORDS SUMMARY | 2023-12-18 18:48 | XMS_ITS | Continuity of Care Document ---
Author Organization [facility] ter Address [address] [place] [address]- Care Team Providers Care Automatic Stacker Name Role Phone Andrew Morfin MD Primary Care Physician [phone] [place] [facility] [place]16/[place] - 11/16/[address] [address]- Encounter Diagnosis Back pain(Final) - 11/16/21 Discharge Disposition: A-D/C Home Attending Physician: Willem White MD Admitting Physician: Willem White MD Referring Physician: Not on Staff, Referring [...] recent to oldest [Reference Range]: 1 2 Oxygen Saturation [94-100 %] 98 % (11/16/21 6:50 AM) 97 % (11/16/21 5:44 AM) Pulse Rate [55-90 bpm] 94 bpm *H* (11/16/21 6:50 AM) 89 bpm (11/16/21 5:44 AM) Blood Pressure [90-138/55-84 mm Hg] 154/ 80mm Hg *H* (11/16/21 6:50 AM) 161/84mm Hg *H* (11/16/21 5:44 AM) Respiratory Rate [16-30 br/min] 17 br/mi n (11/16/21 6:50 AM) 18 br/min (11/16/21 5:44 AM) Temperature [96.8-100.4 DegF] 98.4 DegF (11/16/21 6:50 AM) 98.4 DegF (11/16/21 5:44 AM) Mode of Delivery (Oxygen) Room air (11/16/21 6:50 AM) Room air (11/16/21 5:44 AM) Blood pressure sites Arm, left (11/16/21 6:50 AM) Arm, left (11/16/21 5:44 AM) Temperature Route Oral (11/16/21 6:50 AM) Oral (11/16/21 5:44 AM) Social History Social History Type Response Smoking Status Current every day jess gonzalez; Tobacco user in household: Yes; Type: Cigarettes; Tobacco use times per day: 1/2 PPD; Started at age: 17; entered on: 06/25/17 Sex
--- OUTSIDE RECORDS SUMMARY | 2023-12-18 18:48 | XMS_ITS | Continuity of Care Document ---
Author Organization [facility] Address [address] [place] [address]- Care Team Providers Care High Lift Mule Operator Name Role Phone Andrew Morfin MD Primary Care Physician [place] [facility] [place] [id number] Date(s): 05/07/21 - 06/06/21 [facility] [address] [place] [address]- Attending Physician: Vy Case Admitting Physician: AdmVy [...]
--- OUTSIDE RECORDS SUMMARY | 2023-12-18 18:48 | XMS_ITS | Continuity of Care Document ---
Author Organization [facility] Address [address] [place] [address]- Care Team Providers Care Marine Farmer Name Role Phone Andrew Morfin MD Primary Care Physician [phone] [place] [facility] [place] Date(s): 06/20/20 - 07/20/20 [facility] [address] [place] [address] Allergies, Adverse Reactions, Alerts Substance Reaction Severity Status penicillins Active Immunizations Given and Recorded Vaccine Date Status Refusal Reason SARS-CoV-2 (COVID-19) mRNA BNT-162b2 vac 07/09/20 Given [...]
--- OUTSIDE RECORDS SUMMARY | 2023-12-18 18:48 | XMS_ITS | Continuity of Care Document ---
Author Organization [facility] Address [address] [place] [address] [address], [address] [place] [address]- Care Team Providers Care Road Oiler Name Role Phone Quan BLACKBURN, Dennis Junior Primary Care Physician [phone] [place] [facility] [place] [id number] Date(s): 03/30/22 - 04/29/22 [facility] [address] [place] [address] [address], [address] [place] [address] Attending Physician: Vy Case Admitting Physician: Vy [...] Type: Cigarettes; Tobacco use times per day: 1/ PPD; Started at age: 17; entered on: 06/25/17 Sex Patient Care team information Care Team Personnel Name: Dennis Glass MD Position: [facility] Outreach Member Role: PCP Address: Address: [address] [place] [address] - [address] [employer], [address] Care Team Related Persons Name: RONNI SHELBY Address: home [address] [place] [address] Name: AYAN LOVETT Address: home [address] [place] [address]
--- OUTSIDE RECORDS SUMMARY | 2023-12-18 18:48 | XMS_ITS | Continuity of Care Document ---
Author Organization [facility] ter Address [address] [place] [address]- Care Team Providers Care Director Credit Risk Name Role Phone Andrew Morfin MD Primary Care Physician Encounter [facility] Date(s): 07/17/21 - 07/17/[address] [address]- Discharge Disposition: A-D/C Walkout Attending Physician: Not [...] Most recent to oldest [Reference Range]: 1 Oxygen Saturation [94-100 %] 100 % (07/17/21 12:51 AM) Pulse Rate [55-90 bpm] 110 bpm *H* (07/17/21 12:51 AM) Blood Pressure [90-138/55-84 mm Hg] 148/ 95mm Hg *H* (07/17/21 12:51 AM) Respiratory Rate [16-30 br/min] 18 br/mi n (07/17/21 12:51 AM) Temperature [96.8-100.4 DegF] 98.3 DegF (07/17/21 12:51 AM) Mode of Delivery (Oxygen) Room air (07/17/21 12:51 AM) Blood pressure sites Arm, left (07/17/21 12:51 AM) Temperature Route Oral (07/17/21 12:51 AM) Social History Social History Type Response Smoking Status Current every day jess gonzalez; Tobacco user in household: Yes; Type: Cigarettes; Tobacco use times per day: 1/2 PPD; Started at age: 17; entered on: 06/25/17 Sex
--- NOTE | 2023-12-18 20:32 | MHC.EDTECH ---
Patient refused for this PCT to take her vitals THADDEUS Larson aware
[2023-12-18 20:43] VITALS: BP 144/76; PULSE 97; RESP 18; TEMP 36.9; O2SAT 97
== END 2023-12-18 20:44 | disposition home or self-care (01) ==
PROVIDERS: Emergency Provider Emergency Medicine; PCP Internal Medicine
DX: G89.29 Other chronic pain (principal); M54.50 Low back pain, unspecified; F11.20 Opioid dependence, uncomplicated; F17.210 Nicotine dependence, cigarettes, uncomplicated
CPT/HCPCS: 72100; 99283; 99284

== ENCOUNTER 2024-04-26 06:46 | Observation (INO) | payer MEDICARE, SELFPAY ==
--- NOTE | ~2024-04-26 | CT_ITS ---
EXAMINATION: CT HEAD WITHOUT CONTRAST (STROKE PROTOCOL) CLINICAL INFORMATION: Stroke protocol. Left-sided weakness COMPARISON: Selected images of the brain MRI of 04/28/2021 TECHNIQUE: Contiguous axial imaging was performed from the skull base to vertex without intravenous administration of contrast. This CT examination was performed using dose optimization techniques as appropriate, variously including the following: *Automated exposure control *Adjustment of mA and/or kV according to patient size (this includes techniques or standardized protocols for targeted exams where dose is matched to indication/reason for exam; i.e. extremities or head) *Use of iterative reconstruction technique DLP: 676 mGy-cm FINDINGS: Significant streaking artifacts from the aneurysmal repair clips/coils in the suprasellar cistern and right sylvian fissure significantly limits evaluation of the surrounding structures. Within the limits of study there is no evidence of acute intracranial hemorrhage or acute territorial edematous infarction. Right anterior temporal lobe encephalomalacia is again noted. There are bilateral periventricular and subcortical white matter low-attenuation changes, likely of chronic microangiopathy; the findings do not appear to be significantly changed compared to previous MRI. No abnormal extra-axial fluid collection is seen. Surgical hardware in the right frontal calvarium is noted. The paranasal sinuses are well-aerated. Bilateral mastoid air cells and middle ear cavities are well-aerated. Small volume cerumen is noted in the right external auditory canal. No acute osseous abnormality. Calvarial soft tissues are unremarkable. Patient is status post bilateral lens extraction. CT/CT head for STROKE IMPRESSION: Significant metallic streaking artifacts from the aneurysmal coils/clips in the suprasellar cistern and right sylvian fissure limit the evaluation of the surrounding tissue. Within the limits of study, there is no evidence of acute intracranial hemorrhage or acute territorial edematous infarction. Moderate white matter changes, likely of chronic microangiopathy. Right temporal encephalomalacia. If clinically deemed necessary, consider further evaluation with brain MRI. This critical result was discussed with Dr. Otto Ornelas at 7:05 AM hours on 04/26/2024. It was ascertained that the content and urgency of the report was understood at the time of direct communication. Electronically signed by: Michael Carlson MD 04/26/2024 07:20 AM [facility]
--- NOTE | ~2024-04-26 | CT_ITS ---
EXAMINATION: CTA NECK WITH CONTRAST (STROKE) CTA BRAIN WITH CONTRAST (STROKE) CLINICAL INFORMATION: Left hemiparesis, Suspect acute stroke. Assess for major vessel occlusion. Please call report. COMPARISON: Stroke CT scan of brain on 04/26/2024, MRI brain on 04/28/2021. TECHNIQUE: CTA of the head and neck was performed in the axial plane from the mediastinum to the skull vertex using 70 mL Omnipaque 350 intravenous contrast. Additional reformatted multiplanar images including maximum intensity projection MIP images are generated on the CT workstation. This CT examination was performed using dose optimization techniques as appropriate, variously including the following: *Automated exposure control *Adjustment of mA and/or kV according to patient size (this includes techniques or standardized protocols for targeted exams where dose is matched to indication/reason for exam; i.e. extremities or head) *Use of iterative reconstruction technique DLP: 148 mGy-cm EXAMINATION: CT brain. COMPARISON: Stroke CT scan of brain on 04/26/2024 FINDINGS: Ventricles, sulci and cisterns are dilated. 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 Unchanged cystic encephalomalacia is seen in the right temporal pole and superior medial right temporal lobe. Chronic white matter infarct is seen in right parasagittal superior frontal subcortical and deep white matter. Bilateral frontal and parietal periventricular white matters show abnormal decrease in attenuation. There is no midline shift, no abnormal intra- or extra- axial fluid accumulation. Miles and white matter differentiation is normal. Postcontrast images show normal enhancement of major intracerebral blood vessels. No enhancing intracranial mass lesion or abnormal meningeal enhancement is seen. Bone window images show no evidence of skull fracture. CT/CT angio head neck STROKE IMPRESSION: 1. 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 2. 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 3. 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 4. Unchanged chronic right parasagittal superior frontal lobe white matter infarct. 5. No intracranial hemorrhage or skull fracture is seen. 6. No evidence of space occupying or enhancing intracranial mass lesion could be found. 7. The current plain CT scan of the brain shows no diagnostic evidence of acute cerebral infarction. EXAMINATION: CT angiogram of brain. COMPARISON: None available. FINDINGS: There is normal visualization of bilateral anterior, middle and posterior cerebral arteries, internal carotid arteries, basilar artery and terminal portions of bilateral vertebral arteries. Anterior communicating artery is obscured by aneurysmal clip. Left posterior communicating artery is normal. Bilateral posterior communicating arteries are normal. Aneurysmal clips are seen in the region of anterior communicating artery and bifurcation of right middle cerebral artery M1 segment. Prominent embolization coils are seen in right suprasellar region over the expected location of lateral P1 segment of right posterior cerebral artery. Bilateral internal carotid siphons are smoothly patent. In the left internal carotid siphon between C6 and C7 segments, and inferior infundibulum is seen measuring 1.2 mm in vertical height, 1.7 mm in width. Timing of the bolus allows assessment of the major dural venous sinuses. The major cerebral venous sinuses show normal contrast filling. IMPRESSION: 1. 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 2. No focal cerebral arterial lesion or significant arterial stenosis is seen. 3. Left internal carotid siphon infundibulum is seen at the junction between C6 and C7 segments. EXAMINATION: CT angiogram of neck. COMPARISON: None available. STENOSIS MEASUREMENT: Degree of stenosis was measured and calculated based on NASCET criteria. Carotid stenosis reference using NASCET criteria: % stenosis = (1 - narrowest ICA diameter/diameter of distal cervical ICA) x 100. Mild - < 50% stenosis. Moderate - 50-69% stenosis. Severe - 70-94% stenosis. Near occlusion - 95-99% stenosis. Occluded - 100% stenosis. FINDINGS: RIGHT SIDE: Right internal carotid artery: A large calcified atherosclerotic plaque is seen extending from right common carotid bifurcation into the origin and proximal right internal carotid artery causing 41.0% stenosis in diameter. Right external carotid artery: Smoothly patent. Right common carotid artery: Smoothly patent. Large calcified atherosclerotic plaques are seen at bifurcation extending to the origin of right internal carotid artery. Right vertebral artery: Smoothly patent. LEFT SIDE: Left internal carotid artery: A large calcified atherosclerotic plaque is seen at origin and proximal left internal carotid artery causing 24.4% stenosis in diameter. Left external carotid artery: Smoothly patent. Left common carotid artery: Smoothly patent. Prominent calcified atherosclerotic plaque is seen at bifurcation without causing hemodynamically significant stenosis. Left vertebral artery: Smoothly patent. At the superior mediastinum, the visualized right innominate artery, bilateral subclavian arteries and common carotid arteries are smoothly patent starting from the origin at the aortic arch. Prominent calcified atherosclerotic plaques are seen in proximal left subclavian artery without causing hemodynamically significant stenosis. Prominent calcified atherosclerotic plaque is seen in upper portion of right innominate artery proximal to bifurcation without causing hemodynamically significant stenosis. Scattered multiple calcified atherosclerotic plaques are seen in the aortic arch. IMPRESSION: 1. Prominent atherosclerotic calcifications are seen in proximal right and left internal carotid arteries, causing mild stenosis. 2. Patent bilateral vertebral arteries of similar sizes. This critical test result is communicated to THADDEUS Bradley On 04/26/2024 at 1013 hours Electronically signed by: Anderson Argueta MD 04/26/2024 10:15 AM EST
--- NOTE | 2024-04-26 06:50 | ECG_ITS ---
Test Reason : STROKE PROTOCOL Blood Pressure : / mmHG Vent. Rate : 102 BPM Atrial Rate : 102 BPM P-R Int : 158 ms QRS Dur : 090 ms QT Int : 354 ms P-R-T Axes : 082 071 079 degrees QTc Int : 461 ms Sinus tachycardia Otherwise normal ECG No previous ECGs available Referred By: Otto rOnelas Electronically Signed By:Shahab Haque
--- NOTE | 2024-04-26 06:50 | ED.GENADULT ---
HPI - General Adult General Chief complaint: Stroke Stated complaint: STROKE ALERT Time Seen by Provider: 04/26/24 06:50 History of Present Illness ED Provider: Johnson MEYER narrative: The patient is an 83-year-old woman who lives at home with her . Apparently her called 911 this morning because the patient seemed to be behaving in an unusual manner. The says that the patient was normal when she went to bed last night. He says that at around 05:30 this morning he was awoken because she seemed to be shaking strangely in the bed. He said that she was lying across the bed and that her head was repeatedly bumping into him. He straightened her out on the bed and called 911. When paramedics arrived there was no sign of any ongoing seizure activity. She was awake but had a subdued demeanor. She seemed to have left-sided weakness. She was therefore called in as a code stroke. The patient is denying any complaints. Related Data Home Medications ?Medication ?Instructions ?Recorded ?Confirmed amitriptyline 50 mg tablet 50 mg PO BEDTIME 03/12/20 04/26/24 celecoxib 200 mg capsule 200 mg PO DAILY 03/12/20 04/26/24 donepezil 10 mg tablet 10 mg PO DAILY 03/12/20 04/26/24 Previous Rx's ?Medication ?Instructions ?Recorded oxycodone 20 mg tablet 20 mg PO Q6H PRN severe pain 12/18/23 (scale score 7-10) #8 tabs Allergies Allergy/AdvReac Type Severity Reaction Status Date / Time penicillin Allergy Unknown Unknown Uncoded 04/26/24 07:24 Review of Systems Review of Systems: Yes all other systems are reviewed and are negative [facility] Past Medical History Medical History Family history of brain aneurysm Opioid dependence Pain management Right leg paresthesias Right leg paresthesias Social History Social History Household Members: Spouse Household Members Other:: lives only with Alcohol intake: current Alcohol intake frequency: 0-2 drinks per day Alcohol type: hard liquor Patient Tobacco Use Status: Current everyday Tobacco user Tobacco use type: Cigarette Cigarettes Per Day: 10 Years Smoked: 40 Substance Use Type: Painkillers Current occupation: retired nurse Physical Exam ED Vital Signs: Vital Signs - 24 hr 04/26/24 07:15 Temperature 98.6 F Pulse Rate 94 Respiratory Rate 18 Blood Pressure 146/66 H Pulse Oximetry 96 Oxygen Delivery Method Room Air BMI result Body Mass Index 22.6 Const Other: The patient is awake. She seems to prefer to keep her eyes closed. She seems mildly drowsy. She does not seem in pain or respiratory difficulty. Eyes Other: Lateral gaze is intact bilaterally. Was difficult to say whether she might have a visual field deficit. I was not convinced that she was necessarily seeing the left visual field. Neck Neck: Yes no JVD Resp Effort & Inspection: normal respiratory effort Auscultation: clear to auscultation bilaterally Cardio Rate: regular rate Rhythm: regular rhythm Heart sounds: S1 normal heart sound present and S2 normal heart sound present GI Other: Abdomen is soft and nontender Skin Other: Skin is dry and unremarkable Neuro Other: The patient was awake but seemed mildly sleepy. No definite facial asymmetry. Pupils are round equal. Lateral gaze is intact. I thought that the patient was not necessarily seeing the left visual bray. Her speech is clear. She is oriented. She has mild left-sided pronator drift. She also has some mild weakness of the left leg. NIH stroke scale is approximately 4. Extrem Other: No peripheral edema Medications Administered Generic Name Dose Route Start Last Admin Trade Name Freq PRN Reason Stop Dose Admin Enoxaparin Sodium 40 mg 04/26/24 10:30 04/26/24 11:22 Enoxaparin Sodium 40 Mg/0.4 Ml Syringe SUBCUT 40 mg Q24H VINICIUS Administration Discontinued Medications Generic Name Dose Route Start Last Admin Trade Name Freq PRN Reason Stop Dose Admin Aspirin 325 mg 04/26/24 08:51 04/26/24 11:22 Aspirin 325 Mg Tablet PO 04/26/24 08:52 325 mg ONCE ONE Administration Iohexol 70 ml 04/26/24 07:04 04/26/24 07:04 Iohexol 350 Mg/Ml 100 Ml Infus..Btl IV 04/26/24 07:05 70 ml ONCE ONE Administration Ondansetron HCl 4 mg 04/26/24 08:41 04/26/24 08:47 Ondansetron Odt 4 Mg Tab.Rapdis TRANSLINGU 04/26/24 08:42 4 mg ONCE ONE Administration Medical Decision Making Medical Decision Making [facility] Narrative: The patient is an 83-year-old female who presented to the emergency room after exhibiting bizarre behavior this morning. Her describes possible seizure activity. Paramedics felt she had left-sided weakness. On my exam she has some left-sided weakness. A noncontrast head CT is negative. CT angio of the head and neck shows no definite acute findings. The patient is not a candidate for thrombolytic therapy because her last known well time was more than 7 hours ago when she went to bed last night. I suspect the patient has either had a stroke or she had a seizure which has some residual neurological deficits. The patient will be given aspirin and admitted for further care. Lab Data 04/26/24 06:50 04/26/24 06:50 Labs: Lab Results 04/26/24 04/26/24 04/26/24 Range/Units 06:50 07:10 07:50 WBC 5.5 (4.8-10.8) X10*3/uL RBC 3.48 L (4.20-5.50) X10*6/uL Hgb 10.7 L (12.0-16.0) g/dl Hct 30.9 L (37.0-47.0) % MCV 88.8 (80.0-98.0) fL MCH 30.7 (27.0-33.0) pg MCHC 34.6 (31.0-35.0) g/dl RDW 14.3 (11.0-16.0) % Plt Count 229 (160-400) X10*3/uL MPV 10.2 (9.4-12.3) fL Immature Gran % (Auto) 0.4 (0.0-0.4) % Neut % (Auto) 68.8 (45-73) % Lymph % (Auto) 20.3 (20-40) % [place] % (Auto) 7.8 (2-11) % Eos % (Auto) 1.8 (0-4) % Baso % (Auto) 0.9 (0-2) % Lymph # (Auto) 1.1 L (1.2-4.9) X10*3/uL [place] # (Auto) 0.4 (0.1-1.2) X10*3/uL Eos # (Auto) 0.1 (0.0-0.4) X10*3/uL Baso # (Auto) 0.1 (0.0-0.2) X10*3/uL Abs Immat Gran (auto) 0.02 (0.00-0.03) X10*3/uL Absolute Neuts (auto) 3.8 (2.0-8.3) x10*3/uL Absolute Nucleated RBC 0.000 (0.0-0.012) X10*3/uL Nucleated RBC % (auto) 0.0 (0.0-0.2) /100WBC Hold Purple Top SEE NOTE PT 10.4 L (10.9-12.4) SEC Whole Blood PT 12.3 (11.1-13.5) sec INR 0.9 (0.9-1.1) Whole Blood INR 1.0 (0.9-1.1) APTT 28.6 (26.0-36.8) SEC Sodium 133 L (135-145) mmol/L Potassium 4.1 (3.3-5.1) mmol/L Chloride 98 (96-108) mmol/L Carbon Dioxide 25 (22-29) mmol/L Anion Gap 14 (12-20) BUN 10 (9-16) mg/dL Creatinine 0.88 (0.5-1.4) mg/dL Estim Creat Clear Calc 36.0 Estimated GFR > 60 Random Glucose 116 H (60-115) mg/dL Calcium 9.1 (8.4-10.2) mg/dL Troponin I High Sens 4.0 (<3.5-17.0) ng/L Triglycerides 79 (<150) mg/dL Cholesterol 196 (<200) mg/dL LDL Cholesterol, Calc 105 H (<100) mg/dL HDL Cholesterol 76 (>40) mg/dL Urine Color Yellow Urine Appearance Clear Urine pH 6.5 (5.0-9.0) Ur Specific [place] 1.020 (1.005-1.025) Urine Protein Negative (Neg-Trace) mg/dL Urine Glucose (UA) Negative (Negative) mg/dL Urine Ketones Negative (Negative) mg/dL Urine Blood Negative (Negative) Urine Nitrite Negative (Negative) Ur Leukocyte Esterase Negative (Negative) Urine RBC 0-2 (0-2) /HPF Urine WBC 0-5 (0-5) /HPF Ur Squamous Epith Cells 0-2 (0-2) /HPF Urine Bacteria None Seen (None Seen) Hyaline Casts 0-2 (0-2) /LPF Urine Opiates Screen POSITIVE H (Not Detect) Ur Buprenorphine Scrn Not Detected (Not Detect) ng/mL Ur Oxycodone Screen Positive H (Not Detect) ng/mL Urine Methadone Screen Not Detected (Not Detect) ng/mL Urine Fentanyl Screen Not Detected (Not Detect) Ur Barbiturates Screen Not Detected (Not Detect) Ur Phencyclidine Scrn Not Detected (Not Detect) Ur Amphetamines Screen Not Detected (Not Detect) U Benzodiazepines Scrn Not Detected (Not Detect) Urine Cocaine Screen Not Detected (Not Detect) U Marijuana (THC) Screen Not Detected (Not Detect) Ethyl Alcohol < 10 mg/dL Critical Care Time Critical Care Time Critical Care Time: Yes Total Critical Care Time: 35 Attestation: The patient was critically ill with a high probability of imminent or life-threatening deterioration. ?I spent greater than 30 minutes of discontinuous time evaluating the patient, delivering critical care at the bedside, discussing evaluating data with consultants. ?Critical care time does not include time spent performing separately billable procedures or teaching. ?Time spent performing critical care with 35 minutes. Discharge Plan Discharge Clinical Impression: Acute left-sided weakness Patient Disposition: Admitted As Inpatient
[2024-04-26 06:54] LABS: MANUAL DIFF FLAG NO
[2024-04-26 06:57] LABS: Basophils Absolute Auto 0.1 X10*3/uL (0.0-0.2); Basophils Percent Auto 0.9 % (0-2); Eosinophils Absolute Auto 0.1 X10*3/uL (0.0-0.4); Eosinophils Percent Auto 1.8 % (0-4); Hematocrit 30.9 % (37.0-47.0); Hemoglobin 10.7 g/dl (12.0-16.0); Imm Gran Abs Auto 0.02 X10*3/uL (0.00-0.03); Imm Gran Pct Auto 0.4 % (0.0-0.4); Lymphocytes Absolute Auto 1.1 X10*3/uL (1.2-4.9); Lymphocytes Percent Auto 20.3 % (20-40); Mean Corpuscular HGB Conc 34.6 g/dl (31.0-35.0); Mean Corpuscular Hemoglobin 30.7 pg (27.0-33.0); Mean Corpuscular Volume 88.8 fL (80.0-98.0); Mean Platelet Volume 10.2 fL (9.4-12.3); Monocytes Absolute Auto 0.4 X10*3/uL (0.1-1.2); Monocytes Percent Auto 7.8 % (2-11); Neutrophils Absolute Auto 3.8 x10*3/uL (2.0-8.3); Neutrophils Percent Auto 68.8 % (45-73); Platelet Count 229 X10*3/uL (160-400); Red Blood Count 3.48 X10*6/uL (4.20-5.50); Red Cell Distribution Width 14.3 % (11.0-16.0); White Blood Count 5.5 X10*3/uL (4.8-10.8)
[2024-04-26] MEDS: iohexoL 350 MG/ML 100 ML INFUS..BTL 70 ML IV (07:04)
[2024-04-26 07:05] LABS: INTERNATIONAL NORM RATIO 0.9 (0.9-1.1); Prothrombin Time 10.4 SEC (10.9-12.4)
[2024-04-26 07:07] LABS: Partial Thromboplastin Time 28.6 SEC (26.0-36.8)
[2024-04-26 07:08] LABS: Stroke Lab Use COMPLETE
[2024-04-26 07:15] VITALS: BP 146/66; BP 180/74; PULSE 85; PULSE 94; RESP 18; TEMP 37; O2SAT 95; O2SAT 96; BMI 22.6
[2024-04-26 07:15] LABS: Prothrombin Time Whole Bld POC 12.3 sec (11.1-13.5)
[2024-04-26 07:27] LABS: Anion Gap 14 (12-20); Blood Urea Nitrogen 10 mg/dL (9-16); Calcium 9.1 mg/dL (8.4-10.2); Carbon Dioxide 25 mmol/L (22-29); Chloride 98 mmol/L (96-108); Cholesterol 196 mg/dL (<200); Estimated Glomerular Filt Rate > 60; Ethanol < 10 mg/dL; Glucose Random 116 mg/dL (60-115); HDL Cholesterol 76 mg/dL (>40); LDL Cholesterol Calculated 105 mg/dL (<100); Potassium 4.1 mmol/L (3.3-5.1); Sodium 133 mmol/L (135-145); Triglycerides 79 mg/dL (<150)
--- NOTE | 2024-04-26 08:08 | MHC.STROKE ---
Met with patient and in bed 22. Pt sleepy but arousable to verbal stimuli. Answering all questions appropriately. Reports feeling well yesterday and went to bed between [id number]. states around 0530 this morning, patient was hitting her head on his chest. He turned the light on and reports to me that the patient looked out of it . He proceeded to call 911. Patient reports that she has had one seizure in the past and that was when her brain aneurysm burst. She's had no further seizures since. Patient, , and daughter Brandi Correa updated on plan of care. Stroke education reviewed. Pamphlet provided. will continue to assist as needed.
[2024-04-26 08:26] LABS: Appearance Urine Clear; Color Urine Yellow; Glucose Urine UA Negative (Negative); Leukocyte Esterase Urine Negative (Negative); Nitrite Urine Negative (Negative); PH 6.5 (5.0-9.0); Urine Blood Negative (Negative); Urine Ketones Negative (Negative); Urine Protein Negative (Neg-Trace)
[2024-04-26 08:43] LABS: Amphetamine Screen Urine Not Detected (Not Detect); Barbiturates, Urine Not Detected (Not Detect); Benzodiazepines Screen Urine Not Detected (Not Detect); Buprenorphine Scr Not Detected (Not Detect); Cannabinoid Screen Urine Not Detected (Not Detect); Cocaine Screen Urine Not Detected (Not Detect); Fentanyl, urine Not Detected (Not Detect); Methadone Screen, Urine Not Detected (Not Detect); Opiate Screen Urine POSITIVE (Not Detect); Oxycodone Screen Urine Positive (Not Detect); Phencyclidine Screen Urine Not Detected (Not Detect)
[2024-04-26] MEDS: Ondansetron ODT 4 MG TAB.RAPDIS TRANSLINGU (08:47)
[2024-04-26 09:14] LABS: Bacteria Urine None Seen (None Seen); Hyaline Casts Urine 0-2 /LPF (0-2); RBC Urine 0-2 /HPF (0-2); Squamous Epithelial Cell Urine 0-2 /HPF (0-2); WBC Urine 0-5 /HPF (0-5)
--- NOTE | 2024-04-26 10:26 | P.HPHOSP_ITS ---
History of Present Illness Date of Service: 04/26/24 Chief Complaint: seizures vs tia 83 yo F with a PMH of brain aneurysm s/p clipping, chronic pain on opiate therapy who presents to the ED for acute neurological changes. The patient does not have a recollection of what transpired and hence the history is obtained from the ED provider note. Apparently paramedics were called by her around 530 this morning when he was awakened by what appeared to be abnormal shaking by the patient in the bed. He reported that she was laid across the bed and her head was bumping into him. He straightened her out and called the paramedics. By the time paramedics arrived, there was no evidence of seizure activity. She was awake but appeared sedated. There was some reports of left- sided weakness. The patient is seen and examined in the emergency room around 10:00. She reports no complaints. She denies any focal weakness. She reports to being in her usual state of health. She reports that she is on amitriptyline, for question seizures but has not had a seizure in many years. Workup in the ED including CT head and CTA head and neck were negative for any acute findings. Review of Systems 2 Review of Systems: Negative except HPI/interval history. [facility] Medical History Family history of brain aneurysm Opioid dependence Pain management Right leg paresthesias Right leg paresthesias Social History Household Members: Spouse Household Members Other:: lives only with Alcohol intake: current Alcohol intake frequency: 0-2 drinks per day Alcohol type: hard liquor Patient Tobacco Use Status: Current everyday Tobacco user Tobacco use type: Cigarette Cigarettes Per Day: 10 Years Smoked: 40 Smoked in Last 30 Days: Yes Use of substances other than those prescribed or required for medical reasons: Yes Substance Use Type: Painkillers Advance Directives: No Advance Directives Information Provided: Yes Current occupation: retired nurse Meds Allergies Allergy/AdvReac Type Severity Reaction Status Date / Time penicillin Allergy Unknown Unknown Uncoded 04/26/24 07:24 Home Medications ?Medication ?Instructions ?Recorded ?Confirmed ?Last Taken ?Type amitriptyline 50 mg tablet 50 mg PO BEDTIME 03/12/20 04/26/24 04/25/24 History celecoxib 200 mg capsule 200 mg PO DAILY 03/12/20 04/26/24 04/25/24 History donepezil 10 mg tablet 10 mg PO DAILY 03/12/20 04/26/24 04/25/24 History Physical Exam 2 Vital Signs and Narrative: Vital Signs: Last Vital Signs Temp 98.6 F 04/26/24 07:15 Pulse 94 04/26/24 07:15 Resp 18 04/26/24 07:15 BP 146/66 H 04/26/24 07:15 Pulse Ox 96 04/26/24 07:15 O2 Del Method Room Air 04/26/24 07:15 BMI result Body Mass Index 22.6 Const: Other: Constitutional - Awake and Alert, No apparent distress Eyes - PERRLA, EOMI Cardiovascular - S1S2, RRR, No edema Respiratory - Normal lung expansion, Normal respiratory effort, No respiratory distress, CTA bilaterally Gastrointestinal - NT / ND; +BS; No rebound or guarding - No CVA tenderness Extremities - no calf tenderness bilaterally, no swelling Musculoskeletal - Normal inspection, normal ROM Skin - Warm/Dry Neurological - Alert & oriented x3, do not appreciate any significant laterlizing motor deficits Psychological - Appropriate affect Results Labs 04/26/24 06:50 04/26/24 06:50 Labs: Laboratory Results - last 24 hr 04/26/24 04/26/24 04/26/24 06:50 07:10 07:50 MCV 88.8 MCH 30.7 MCHC 34.6 RDW 14.3 Plt Count 229 MPV 10.2 Immature Gran % (Auto) 0.4 Neut % (Auto) 68.8 Lymph % (Auto) 20.3 [place] % (Auto) 7.8 Eos % (Auto) 1.8 Baso % (Auto) 0.9 Lymph # (Auto) 1.1 L [place] # (Auto) 0.4 Eos # (Auto) 0.1 Baso # (Auto) 0.1 Abs Immat Gran (auto) 0.02 Absolute Neuts (auto) 3.8 Absolute Nucleated RBC 0.000 Nucleated RBC % (auto) 0.0 Hold Purple Top SEE NOTE PT 10.4 L Whole Blood PT 12.3 INR 0.9 Whole Blood INR 1.0 APTT 28.6 Anion Gap 14 Estim Creat Clear Calc 36.0 Estimated GFR > 60 Random Glucose 116 H Calcium 9.1 Troponin I High Sens 4.0 Triglycerides 79 Cholesterol 196 LDL Cholesterol, Calc 105 H HDL Cholesterol 76 Urine Color Yellow Urine Appearance Clear Urine pH 6.5 Ur Specific [place] 1.020 Urine Protein Negative Urine Glucose (UA) Negative Urine Ketones Negative Urine Blood Negative Urine Nitrite Negative Ur Leukocyte Esterase Negative Urine RBC 0-2 Urine WBC 0-5 Ur Squamous Epith Cells 0-2 Urine Bacteria None Seen Hyaline Casts 0-2 Urine Opiates Screen POSITIVE H Ur Buprenorphine Scrn Not Detected Ur Oxycodone Screen Positive H Urine Methadone Screen Not Detected Urine Fentanyl Screen Not Detected Ur Barbiturates Screen Not Detected Ur Phencyclidine Scrn Not Detected Ur Amphetamines Screen Not Detected U Benzodiazepines Scrn Not Detected Urine Cocaine Screen Not Detected U Marijuana (THC) Screen Not Detected Ethyl Alcohol < 10 Imaging Radiologist's Impressions: Impressions Head CT 04/26/24 06:50 IMPRESSION: Significant metallic streaking artifacts from the aneurysmal coils/clips in the suprasellar cistern and right sylvian fissure limit the evaluation of the surrounding tissue. Within the limits of study, there is no evidence of acute intracranial hemorrhage or acute territorial edematous infarction. Moderate white matter changes, likely of chronic microangiopathy. Right temporal encephalomalacia. If clinically deemed necessary, consider further evaluation with brain MRI. This critical result was discussed with Dr. Otto Ornelas at 7:05 AM hours on 04/26/2024. It was ascertained that the content and urgency of the report was understood at the time of direct communication. Electronically signed by: Michael Carlson MD 04/26/2024 07:20 AM [facility] Head/Neck CTA 04/26/24 06:58 IMPRESSION: 1. 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 2. 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 3. 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 4. Unchanged chronic right parasagittal superior frontal lobe white matter infarct. 5. No intracranial hemorrhage or skull fracture is seen. 6. No evidence of space occupying or enhancing intracranial mass lesion could be found. 7. The current plain CT scan of the brain shows no diagnostic evidence of acute cerebral infarction. EXAMINATION: CT angiogram of brain. COMPARISON: None available. FINDINGS: There is normal visualization of bilateral anterior, middle and posterior cerebral arteries, internal carotid arteries, basilar artery and terminal portions of bilateral vertebral arteries. Anterior communicating artery is obscured by aneurysmal clip. Left posterior communicating artery is normal. Bilateral posterior communicating arteries are normal. Aneurysmal clips are seen in the region of anterior communicating artery and bifurcation of right middle cerebral artery M1 segment. Prominent embolization coils are seen in right suprasellar region over the expected location of lateral P1 segment of right posterior cerebral artery. Bilateral internal carotid siphons are smoothly patent. In the left internal carotid siphon between C6 and C7 segments, and inferior infundibulum is seen measuring 1.2 mm in vertical height, 1.7 mm in width. Timing of the bolus allows assessment of the major dural venous sinuses. The major cerebral venous sinuses show normal contrast filling. IMPRESSION: 1. 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 2. No focal cerebral arterial lesion or significant arterial stenosis is seen. 3. Left internal carotid siphon infundibulum is seen at the junction between C6 and C7 segments. EXAMINATION: CT angiogram of neck. COMPARISON: None available. STENOSIS MEASUREMENT: Degree of stenosis was measured and calculated based on NASCET criteria. Carotid stenosis reference using NASCET criteria: % stenosis = (1 - narrowest ICA diameter/diameter of distal cervical ICA) x 100. Mild - < 50% stenosis. Moderate - 50-69% stenosis. Severe - 70-94% stenosis. Near occlusion - 95-99% stenosis. Occluded - 100% stenosis. FINDINGS: RIGHT SIDE: Right internal carotid artery: A large calcified atherosclerotic plaque is seen extending from right common carotid bifurcation into the origin and proximal right internal carotid artery causing 41.0% stenosis in diameter. Right external carotid artery: Smoothly patent. Right common carotid artery: Smoothly patent. Large calcified atherosclerotic plaques are seen at bifurcation extending to the origin of right internal carotid artery. Right vertebral artery: Smoothly patent. LEFT SIDE: Left internal carotid artery: A large calcified atherosclerotic plaque is seen at origin and proximal left internal carotid artery causing 24.4% stenosis in diameter. Left external carotid artery: Smoothly patent. Left common carotid artery: Smoothly patent. Prominent calcified atherosclerotic plaque is seen at bifurcation without causing hemodynamically significant stenosis. Left vertebral artery: Smoothly patent. At the superior mediastinum, the visualized right innominate artery, bilateral subclavian arteries and common carotid arteries are smoothly patent starting from the origin at the aortic arch. Prominent calcified atherosclerotic plaques are seen in proximal left subclavian artery without causing hemodynamically significant stenosis. Prominent calcified atherosclerotic plaque is seen in upper portion of right innominate artery proximal to bifurcation without causing hemodynamically significant stenosis. Scattered multiple calcified atherosclerotic plaques are seen in the aortic arch. IMPRESSION: 1. Prominent atherosclerotic calcifications are seen in proximal right and left internal carotid arteries, causing mild stenosis. 2. Patent bilateral vertebral arteries of similar sizes. This critical test result is communicated to THADDEUS Bradley On 04/26/2024 at 1013 hours Electronically signed by: Anderson Argueta MD 04/26/2024 10:15 AM [facility] Assessment and Plan (1) Acute left-sided weakness: Status: Acute Plan 83 yo F with a history of brain aneurysm s/p clipping who presents to the ED after acute neurological changes suggestive of TIA vs seizures. Neurologically she appears to be at baseline but given her history, she will be placed under obs with plans for neurology consulted. 1. TIA vs seizure per history appears more consistent with seizures do not appciate any focal deficits at this time will place under obs cardiac monitoring and neurology consult may need MRI and/or EEG -- will await neurology input 2. Chronic pain on oxycodone at baseline, will continue 3. History of brain aneurysm s/p clipping/embolization continue baseline meds Full Code DVT pptx, lovenox Quality Stroke Does the patient have a stroke diagnosis?: No VTE Prior VTE?: No VTE Risk Level:: Medical - moderate - high VTE Device Contraindication: N/A - Device Ordered VTE Drug Contraindication: N/A - Med Ordered
[2024-04-26 10:44] VITALS: BP 134/67; PULSE 77; RESP 13; TEMP 36.9; O2SAT 95
[2024-04-26] MEDS: Enoxaparin Sodium 40 MG/0.4 ML SYRINGE SUBCUT (11:22)
[2024-04-26] MEDS: Aspirin 325 MG TABLET PO (11:22)
--- NOTE | 2024-04-26 11:32 | PHA.MEDREC ---
Addendum entered by Gt Lee RPh 04/26/24 13:15: Med rec was reviewed by [facility]. Addendum entered by Davis Encarnacion 04/26/24 12:53: Updated: When asking if the patient is still taking the Gabapentin 600mg tab she states she is not taking it and said she did not like how it was making her feel; she stopped about 2-3 weeks ago. Original Note: Pharmacy Consult ? Medication Reconciliation Pharmacy has completed the medication reconciliation. Spoke with patient and she confirmed her medications. She confirmed she is taking the Celecoxib 200mg tab and states she takes it once daily and has been for a while now . She states she took her medications yesterday.
--- NOTE | 2024-04-26 12:58 | PM.EVENT ---
Event Note Date of Service: 04/26/24 Event Note: Informed by RN that patient was requesting discharge from the hospital. Pt seen and examined. Patients is bedside. Patient states she feels at baseline and would like to be discharged. Informed her that her work up and monitoring have no finished and she was not medically ready for discharge. Explained the risks (recurrent events of seizures/TIA, possible stroke and even ) of leaving against medical advice. Despite this, she would like to sign out against medical advice. Pt is AAOx3, understands her condition and is able to make medical decisions. also understands as well. Informed pt to return to ED should she change her mind / has symptoms again. Also suggested to f/u with PCP and neurology. Time Spent With Patient Time: Total time managing care of this patient today ____ minutes.
--- NOTE | 2024-04-26 13:02 | P.DS_ITS ---
DS: Providers Provider Date of Service: 04/26/24 Date of admission: 04/26/24 10:24 Primary care physician: Dennis Glass MD Consults: 04/26/24 10:22 Consult to Neurology Routine Consulting Provider: [facility] Reason for consultation: tia vs seizure DS: Diagnosis Discharge Diagnosis (1) Acute left-sided weakness: Status: Acute DS: Summary Hospital Course Hospital Course: HPI from admission H&P: 83 yo F with a PMH of brain aneurysm s/p clipping, chronic pain on opiate therapy who presents to the ED for acute neurological changes. The patient does not have a recollection of what transpired and hence the history is obtained from the ED provider note. Apparently paramedics were called by her around 530 this morning when he was awakened by what appeared to be abnormal shaking by the patient in the bed. He reported that she was laid across the bed and her head was bumping into him. He straightened her out and called the paramedics. By the time paramedics arrived, there was no evidence of seizure activity. She was awake but appeared sedated. There was some reports of left- sided weakness. The patient is seen and examined in the emergency room around 10:00. She reports no complaints. She denies any focal weakness. She reports to being in her usual state of health. She reports that she is on amitriptyline, for question seizures but has not had a seizure in many years. Workup in the ED including CT head and CTA head and neck were negative for any acute findings. Hospital Course: patient was admitted with plans for further work up of her symptoms includig neurology evaluation. unfortunatley shortly after admission, the patient requested discharge against medical advice (see separate event note). seizure vs tia -- cannot be ruled out; acute CVA -- cannot be ruled out. Time Attestation Discharge Coordination Time (in mins): less than 30 Quality: Safe Use of Opioids Does Pt have an Active Cancer Diagnosis on the Problem List?: No Quality: Stroke Does the patient have a stroke diagnosis?: No Physical Exam Vital Signs: Vital Signs: Last Vital Signs Temp 98.5 F 04/26/24 10:44 Pulse 77 04/26/24 10:44 Resp 13 04/26/24 10:44 BP 134/67 04/26/24 10:44 Pulse Ox 95 12/04/24 10:44 O2 Del Method Room Air 12/04/24 10:44 BMI result Body Mass Index 22.6 DS: Data Data Completed and Pending Labs on day of discharge: Laboratory Results - last 24 hr 04/26/24 04/26/24 04/26/24 06:50 07:10 07:50 WBC 5.5 RBC 3.48 L Hgb 10.7 L Hct 30.9 L MCV 88.8 MCH 30.7 MCHC 34.6 RDW 14.3 Plt Count 229 MPV 10.2 Immature Gran % (Auto) 0.4 Neut % (Auto) 68.8 Lymph % (Auto) 20.3 [place] % (Auto) 7.8 Eos % (Auto) 1.8 Baso % (Auto) 0.9 Lymph # (Auto) 1.1 L [place] # (Auto) 0.4 Eos # (Auto) 0.1 Baso # (Auto) 0.1 Abs Immat Gran (auto) 0.02 Absolute Neuts (auto) 3.8 Absolute Nucleated RBC 0.000 Nucleated RBC % (auto) 0.0 Hold Purple Top SEE NOTE PT 10.4 L Whole Blood PT 12.3 INR 0.9 Whole Blood INR 1.0 APTT 28.6 Sodium 133 L Potassium 4.1 Chloride 98 Carbon Dioxide 25 Anion Gap 14 BUN 10 Creatinine 0.88 Estim Creat Clear Calc 36.0 Estimated GFR > 60 Random Glucose 116 H Calcium 9.1 Troponin I High Sens 4.0 Triglycerides 79 Cholesterol 196 LDL Cholesterol, Calc 105 H HDL Cholesterol 76 Urine Color Yellow Urine Appearance Clear Urine pH 6.5 Ur Specific [place] 1.020 Urine Protein Negative Urine Glucose (UA) Negative Urine Ketones Negative Urine Blood Negative Urine Nitrite Negative Ur Leukocyte Esterase Negative Urine RBC 0-2 Urine WBC 0-5 Ur Squamous Epith Cells 0-2 Urine Bacteria None Seen Hyaline Casts 0-2 Urine Opiates Screen POSITIVE H Ur Buprenorphine Scrn Not Detected Ur Oxycodone Screen Positive H Urine Methadone Screen Not Detected Urine Fentanyl Screen Not Detected Ur Barbiturates Screen Not Detected Ur Phencyclidine Scrn Not Detected Ur Amphetamines Screen Not Detected U Benzodiazepines Scrn Not Detected Urine Cocaine Screen Not Detected U Marijuana (THC) Screen Not Detected Ethyl Alcohol < 10 Discharge Plan Discharge Patient Disposition: Left Against Medical Advice Referrals: Dennis Glass MD [Primary Care Provider] - 1 Week Discharge Medications: No Action oxycodone 20 mg tablet 20 mg PO Q6H PRN (Reason: severe pain (scale score 7-10)) Qty: 8 0RF Rx Instructions: Partial Fill upon patient request. amitriptyline 50 mg tablet 50 mg PO BEDTIME donepezil 10 mg tablet 10 mg PO DAILY celecoxib 200 mg capsule 200 mg PO DAILY Discharge Orders: Discharge Order (Routine); Ordered 04/26/24 Ordered By: Damian Carlson Stand Alone Forms: Against Medical Advice Print Language: Filipino Care Plan Goals: Patient left against medical advice Health Concerns: Patient left against medical advice Plan of Treatment: Patient left against medical advice Assessment: Patient left against medical advice
[2024-04-26 13:39] VITALS: BP 134/67; PULSE 77; RESP 13; TEMP 36.9; O2SAT 95
--- NOTE | 2024-04-26 17:04 | P.CNNE_ITS ---
History of Present Illness Data of Consult Primary Care Provider: Dennis Glass MD [facility] Past Medical History Medical History Family history of brain aneurysm Opioid dependence Pain management Right leg paresthesias Right leg paresthesias Social History Social History Household Members: Spouse Household Members Other:: lives only with Alcohol intake: current Alcohol intake frequency: 0-2 drinks per day Alcohol type: hard liquor Patient Tobacco Use Status: Current everyday Tobacco user Tobacco use type: Cigarette Cigarettes Per Day: 10 Years Smoked: 40 Substance Use Type: Painkillers Current occupation: retired nurse Meds Allergies Allergy/AdvReac Type Severity Reaction Status Date / Time penicillin Allergy Unknown Unknown Uncoded 04/26/24 07:24 Active Medications: Current Medications Acetaminophen (Acetaminophen 325 Mg Tablet) 650 mg PO Q6H PRN PRN Reason: Pain, Mild (Pain Scale 1-3), fever or headache Calcium Carbonate (Calcium Carbonate 750 Mg Tab.Chew) 750 mg PO Q4H PRN PRN Reason: Heartburn Enoxaparin Sodium (Enoxaparin Sodium 40 Mg/0.4 Ml Syringe) 40 mg SUBCUT Q24H VINICIUS Last Admin: 04/26/24 11:22 Dose: 40 mg Magnesium Hydroxide (Milk Of Magnesia 30 Ml Oral.Susp) 30 ml PO DAILY PRN PRN Reason: Constipation Melatonin (Melatonin 3 Mg Tablet) 6 mg PO BEDTIME PRN PRN Reason: Insomnia Sodium Chloride (0.9 % Sodium Chloride Flush 3 Ml Syringe) [facility] Medications ?Medication ?Instructions ?Recorded ?Confirmed ?Last Taken ?Type amitriptyline 50 mg tablet 50 mg PO BEDTIME 03/12/20 04/26/24 04/25/24 History celecoxib 200 mg capsule 200 mg PO DAILY 03/12/20 04/26/24 04/25/24 History donepezil 10 mg tablet 10 mg PO DAILY 03/12/20 04/26/24 04/25/24 History Physical Exam 2 Vital Signs: Vital Signs: Last Vital Signs Temp 98.5 F 04/26/24 13:39 Pulse 77 04/26/24 13:39 Resp 13 04/26/24 13:39 BP 134/67 04/26/24 13:39 Pulse Ox 95 04/26/24 13:39 O2 Del Method Room Air 04/26/24 13:39 BMI result Body Mass Index 22.6 Results Labs 04/26/24 06:50 04/26/24 06:50 Labs: Short CBC 04/26/24 Range/Units 06:50 WBC 5.5 (4.8-10.8) X10*3/uL Hgb 10.7 L (12.0-16.0) g/dl Hct 30.9 L (37.0-47.0) % Plt Count 229 (160-400) X10*3/uL BMP 04/26/24 06:50 Sodium 133 L Potassium 4.1 Chloride 98 Carbon Dioxide 25 BUN 10 Creatinine 0.88 Calcium 9.1 Urine 04/26/24 Range/Units 07:50 Urine Color Yellow Urine Appearance Clear Urine pH 6.5 (5.0-9.0) Ur Specific [place] 1.020 (1.005-1.025) Urine Protein Negative (Neg-Trace) mg/dL Urine Glucose (UA) Negative (Negative) mg/dL Procedures Date of Service Date of Service: 04/26/24
== END 2024-04-26 20:00 | disposition left against medical advice (07) ==
LOC: HO.ED 07:34 → HO.EDOVER 11:20 → HO.IMC 19:41
PROVIDERS: Admitting Provider Family Medicine; Emergency Provider Emergency Medicine; PCP Internal Medicine; Visit Provider Family Medicine
DX: R53.1 Weakness (principal); Z53.29 Procedure and treatment not carried out because of patient's decision for other reasons; G89.29 Other chronic pain; R29.704 NIHSS score 4; I72.9 Aneurysm of unspecified site; Z79.899 Other long term (current) drug therapy
CPT/HCPCS: 36415; 70450; 70496; 70498; 80048; 80061; 80307; 81001; 84484; 85025; 85610; 85730; 93005; 96372; 99222; 99285; J1650; Q9967

== ENCOUNTER → 2024-04-26 06:50 | Outpatient (BNV) | payer MEDICARE, SELFPAY | PROVIDERS: Admitting Provider Family Medicine; Emergency Provider Emergency Medicine; PCP Internal Medicine; Visit Provider Internal Medicine Cardiovascular Disease | DX: R00.0 Tachycardia, unspecified (principal) | CPT/HCPCS: 93010 ==

== ENCOUNTER → 2024-04-26 10:24 | Outpatient (BNV) | payer MEDICARE, SELFPAY | PROVIDERS: Admitting Provider Family Medicine; Emergency Provider Emergency Medicine; PCP Internal Medicine; Visit Provider Family Medicine | DX: R53.1 Weakness (principal) | CPT/HCPCS: 99222; 99499 ==